=== PATIENT | female | born 1930 ===

== ENCOUNTER 2017-08-18 02:07 | Inpatient (IN) | payer MEDICARE ==
[~2017-08-18] VITALS: Ht 165.1 cm; Wt 82.7 kg
[2017-08-18] MEDS ORDERED: DOCU-109 PO (02:53)
[2017-08-18] MEDS ORDERED: MULT-658 PO (02:53)
[2017-08-18] MEDS ORDERED: DULO60CA6 PO (02:53)
[2017-08-18] MEDS ORDERED: CALC1CAP7 PO (02:53)
[2017-08-18] MEDS ORDERED: INSU100I17 SQ (02:53)
[2017-08-18] MEDS ORDERED: HYDR30CR6 RC (02:53)
[2017-08-18] MEDS ORDERED: LEVO125T5 PO (02:53)
[2017-08-18] MEDS ORDERED: POLY119P4 PO (02:53)
[2017-08-18] MEDS ORDERED: ASPI81TA50 PO (02:53)
[2017-08-18] MEDS ORDERED: INSU100I32 SQ (02:53)
[2017-08-18] MEDS ORDERED: CHOL10003 PO (02:53)
[2017-08-18] MEDS ORDERED: AMLO10TA4 PO (02:53)
[2017-08-18] MEDS ORDERED: DONE10TA61 PO (02:53)
[2017-08-18] MEDS ORDERED: MEMA10TA PO (02:53)
[2017-08-18] MEDS ORDERED: METO25TA4 PO (02:53)
[2017-08-18] MEDS ORDERED: CLOP75TA57 PO (02:53)
[2017-08-18] MEDS ORDERED: MAGNESIUM HYDROXIDE 2,400 MG/30 ML ORAL.SUSP. PO PRN (03:45)
[2017-08-18] MEDS ORDERED: MAG HYDROX/AL HYDROX/SIMETH 30 ML ORAL.SUSP PO PRN (03:45)
[2017-08-18] MEDS ORDERED: DEXTROSE 50% 25 GM / 50ML DISP.SYRIN. IV PRN (03:45)
[2017-08-18] MEDS ORDERED: HYDROCORTISONE 2.5% RECTAL CREAM 30GM TUBE. RC PRN (04:30)
[2017-08-18 04:47] VITALS: BP 156/54
[2017-08-18 04:51] LABS: BILIRUBIN,URINE NEG (NEG); CLARITY,URINE HAZY; COLOR,URINE YELLOW; GLUCOSE,URINE NEG (NEG); UROBILINOGEN,URINE 0.2 mg/dL (0.2 mg/dL)
[2017-08-18 04:52] LABS: BACTERIA,URINE FEW /HPF (0-FEW); NITRITE,URINE NEG (NEG); SQUAMOUS EPITHELIAL CELL,UR FEW /LPF
[2017-08-18] MEDS: LEVOTHYROXINE 125 MCG TABLET PO SCH (06:24)
[2017-08-18 06:52] VITALS: BP 154/68
[2017-08-18] MEDS: INSULIN ASPART 300 UNITS/3 ML INSULN.PEN SQ SCH ×3 (07:30→17:52)
[2017-08-18 08:19] LABS: BASO # 0.1 x10^3/uL (0.0-0.2); BASO % 1 % (0-3); EOS # 0.2 x10^3/uL (0.0-0.7); EOS % 3 % (0-3); HEMATOCRIT 39.1 % (36.0-47.0); HEMOGLOBIN 13.2 g/dL (12.0-15.5); LYMPH # 1.7 x10^3/uL (1.0-4.8); LYMPH % 27 % (24-48); MEAN CORPUSCULAR HEMOGLOBIN 31 pg (25-35); MEAN CORPUSCULAR HGB CONC 34 g/dL (31-37); MEAN CORPUSCULAR VOLUME 91 fL (79-100); MONO # 0.6 x10^3/uL (0.0-1.1); MONO % 10 % (0-9); NEUT # 3.8 x10^3uL (1.8-7.7); NEUT % 59 % (31-73); PLATELET COUNT 171 x10^3/uL (140-400); RED BLOOD COUNT 4.32 x10^6/uL (3.50-5.40); RED CELL DISTRIBUTION WIDTH 14.3 % (11.5-14.5); WHITE BLOOD COUNT 6.5 x10^3/uL (4.0-11.0)
[2017-08-18] MEDS: CLOPIDOGREL BISULFATE 75 MG TABLET PO SCH (08:38)
[2017-08-18] MEDS: DOCUSATE SODIUM 100 MG CAPSULE PO SCH (08:38)
[2017-08-18] MEDS: amLODIPine BESYLATE 10 MG TABLET PO SCH (08:39)
[2017-08-18] MEDS: DULoxetine HCL 60 MG CAPSULE.DR PO SCH (08:39)
[2017-08-18] MEDS: METOPROLOL TART IMMED RELEASE 25 MG TABLET PO SCH ×2 (08:39→20:45)
[2017-08-18] MEDS: MULTIVITAMIN with MINERAL TABLET. PO SCH (08:39)
[2017-08-18] MEDS: CALCIUM CARB/VIT D3 500/200 TABLET PO SCH ×2 (08:39→17:50)
[2017-08-18] MEDS: POLYETHYLENE GLYCOL 3350 17 GM PACKET. PO SCH (08:39)
[2017-08-18] MEDS: DONEPEZIL HCL 10 MG TABLET PO SCH ×2 (08:39→20:45)
[2017-08-18] MEDS: CHOLECALCIFEROL (VITAMIN D3) 1,000 UNIT TABLET PO SCH (08:39)
[2017-08-18] MEDS: MEMANTINE 10 MG TABLET. PO SCH ×2 (08:40→20:45)
[2017-08-18] MEDS: ASPIRIN ENTERIC COATED 81 MG TABLET.DR. PO SCH (08:40)
[2017-08-18 08:48] LABS: ALBUMIN 3.3 g/dL (3.4-5.0); ALBUMIN/GLOBULIN RATIO 0.8 (1.0-1.7); CALCIUM 9.6 mg/dL (8.5-10.1); CREATININE 1.2 mg/dL (0.6-1.0); GFR 42.5; TOTAL BILIRUBIN 0.4 mg/dL (0.2-1.0); TOTAL PROTEIN 7.2 g/dL (6.4-8.2)
[2017-08-18 10:31] LABS: THYROID STIM HORMONE (TSH) 0.88 uIU/mL (0.358-3.740)
[2017-08-18 15:07] LABS: T3 TOTAL 70 ng/dL (71-180); THYROXINE 7.3 ug/dL (4.5-12.0)
[2017-08-18 16:11] LABS: HEMOGLOBIN A1C 7.9 % (4.8-5.6)
[2017-08-18 18:11] VITALS: BP 148/59
[2017-08-18] MEDS: INSULIN DETEMIR 300 UNITS/3 ML INSULN.PEN. SQ SCH (20:58)
--- NOTE | 2017-08-18 22:35 | PDOC ---
Exam Note: Basil Note: Please also refer to the separate dictated note~for this date of service dictated separately.~Patient seen individually. Discussed the patient with Nursing staff reviewed the chart.~Reviewed interim history and current functioning. Reviewed vital signs,~Labs/ Radiology~and current medications noted below. Continue current treatment with the changes noted in the dictated addendum note Assessment: Vital Signs: Vital Signs Date Time Temp Pulse Resp B/P (MAP) Pulse Ox O2 Delivery O2 Flow Rate FiO2 08/18/17 20:45 71 148/59 08/18/17 18:11 98.1 18 98 Labs: Laboratory Tests Test 08/18/17 04:30 08/18/17 08:00 Urine Collection Type Unknown Urine Color Yellow Urine Clarity Hazy Urine pH 6.0 Urine Specific [place] 1.025 Urine Protein 30 mg/dl (NEG-TRACE) Urine Glucose (UA) Neg mg/dL (NEG) Urine Ketones (Stick) Neg mg/dL (NEG) Urine Blood Trace (NEG) Urine Nitrite Neg (NEG) Urine Bilirubin Neg (NEG) Urine Urobilinogen Dipstick 0.2 mg/dL (0.2 mg/dL) Urine Leukocyte Esterase Trace (NEG) Urine RBC 3-5 /HPF (0-2) Urine WBC 11-20 /HPF (0-4) Urine Squamous Epithelial Cells Few /LPF Urine Bacteria Few /HPF (0-FEW) Urine Mucus Slight /LPF White Blood Count 6.5 x10^3/uL (4.0-11.0) Red Blood Count 4.32 x10^6/uL (3.50-5.40) Hemoglobin 13.2 g/dL (12.0-15.5) Hematocrit 39.1 % (36.0-47.0) Mean Corpuscular Volume 91 fL (79-100) Mean Corpuscular Hemoglobin 31 pg (25-35) Mean Corpuscular Hemoglobin Concent 34 g/dL (31-37) Red Cell Distribution Width 14.3 % (11.5-14.5) Platelet Count 171 x10^3/uL (140-400) Neutrophils (%) (Auto) 59 % (31-73) Lymphocytes (%) (Auto) 27 % (24-48) Monocytes (%) (Auto) 10 % (0-9) H Eosinophils (%) (Auto) 3 % (0-3) Basophils (%) (Auto) 1 % (0-3) Neutrophils # (Auto) 3.8 x10^3uL (1.8-7.7) Lymphocytes # (Auto) 1.7 x10^3/uL (1.0-4.8) Monocytes # (Auto) 0.6 x10^3/uL (0.0-1.1) Eosinophils # (Auto) 0.2 x10^3/uL (0.0-0.7) Basophils # (Auto) 0.1 x10^3/uL (0.0-0.2) Sodium Level 141 mmol/L (136-145) Potassium Level 4.0 mmol/L (3.5-5.1) Chloride Level 104 mmol/L (98-107) Carbon Dioxide Level 29 mmol/L (21-32) Anion Gap 8 (6-14) Blood Urea Nitrogen 25 mg/dL (7-20) H Creatinine 1.2 mg/dL (0.6-1.0) H Estimated GFR (Cockcroft-Gault) 42.5 BUN/Creatinine Ratio 21 (6-20) H Glucose Level 180 mg/dL (70-99) H Hemoglobin A1c 7.9 % (4.8-5.6) H Calcium Level 9.6 mg/dL (8.5-10.1) Magnesium Level 2.0 mg/dL (1.8-2.4) Iron Level 89 ug/dL (50-170) Total Iron Binding Capacity 276 ug/dL (250-450) Iron Saturation 32 % (15-34) Total Bilirubin 0.4 mg/dL (0.2-1.0) Aspartate Amino Transferase (AST) 18 U/L (15-37) Alanine Aminotransferase (ALT) 23 U/L (14-59) Alkaline Phosphatase 87 U/L (46-116) Total Protein 7.2 g/dL (6.4-8.2) Albumin 3.3 g/dL (3.4-5.0) L Albumin/Globulin Ratio 0.8 (1.0-1.7) L Triglycerides Level 311 mg/dL (0-150) H Cholesterol Level 300 mg/dL (0-200) H LDL Cholesterol, Calculated 193 mg/dL (0-100) H VLDL Cholesterol, Calculated 62 mg/dL (0-40) H Non-HDL Cholesterol Calculated 255 mg/dL (0-129) H HDL Cholesterol 45 mg/dL (40-60) Cholesterol/HDL Ratio 6.0 Thyroid Stimulating Hormone (TSH) 0.880 uIU/mL (0.358-3.740) Thyroxine (T4) 7.3 ug/dL (4.5-12.0) Total Triiodothyronine (TT3) 70 ng/dL (71-180) L Rapid Plasma Reagin Pending Current Medications: Meds: Current Medications Al Hydroxide/Mg Hydroxide (Mylanta Plus Xs) 15 ml PRN AFTMEALHC PRN PO DYSPEPSIA; Start 08/18/17 at 03:45 Magnesium Hydroxide (Milk Of Magnesia) 2,400 mg PRN QHS PRN PO CONSTIPATION; Start 08/18/17 at 03:45 Donepezil HCl (Aricept) 10 mg BID PO Last administered on 08/18/17at 20:45; Start 08/18/17 at 09:00 Duloxetine HCl (Cymbalta) 60 mg DAILY PO Last administered on 08/18/17at 08:39; Start 08/18/17 at 09:00 Memantine (Namenda) 10 mg BID PO Last administered on 08/18/17at 20:45; Start at 09:00 Amlodipine Besylate (Norvasc) 10 mg DAILY PO Last administered on 08/18/17at 08: 39; Start 08/18/17 at 09:00 Aspirin (Aspirin Enteric Coated) 81 mg DAILY PO Last administered on 08/18/17at 08:40; Start 08/18/17 at 09:00 Vitamin D (Vitamin D3) 2,000 unit DAILY PO Last administered on 08/18/17at 08:39 ; Start 08/18/17 at 09:00 Clopidogrel Bisulfate (Plavix) 75 mg DAILY PO Last administered on 08/18/17at 08 :38; Start 08/18/17 at 09:00 Docusate Sodium (Colace) 100 mg DAILY PO Last administered on 08/18/17at 08:38; Start 08/18/17 at 09:00 Levothyroxine Sodium (Synthroid) 125 mcg DAILY06 PO Last administered on at 06:24; Start 08/18/17 at 06:00 Metoprolol Tartrate (Lopressor) 25 mg BID PO Last administered on 08/18/17at 20: 45; Start 08/18/17 at 09:00 Polyethylene Glycol (miraLAX) 17 gm DAILY PO Last administered on 08/18/17at 08: 39; Start 08/18/17 at 09:00 Calcium/Vitamin D (Oscal D 500mg/ 200uts) 1 tab BIDWMEALS PO Last administered on 08/18/17at 17:50; Start 08/18/17 at 08:00 Hydrocortisone (Proctosol-Hc) 1 yessica PRN BID PRN RC HEMORRHOID PAIN; Start 08/18 at 04:30 Multivitamins/ Calcium (Thera-M Plus) 1 tab DAILY PO Last administered on at 08:39; Start 08/18/17 at 09:00 Insulin Aspart (NovoLOG) 0-5 UNITS TIDAC SQ Last administered on 08/18/17at 17: 52; Start 08/18/17 at 07:30 Dextrose 12.5 gm PRN Q15MIN PRN IV SEE COMMENTS; Start 08/18/17 at 03:45 Insulin Detemir (Levemir) 64 units QHS SQ Last administered on 08/18/17at 20:58 ; Start 08/18/17 at 21:00 Active Scripts Active Reported Novolog Flexpen (Insulin Aspart) 100 Unit/1 Ml Insuln.pen 0-10 Unit SQ TIDAC Sliding Scale: Accucheck: 150-200 = 2 units 201-250 = 4 units 251-300 = 6 units 301-400 = 8 units 401-500 = 10 units Call PCP if > than 500 or < 70 Basaglar Kwikpen U-100 (Insulin Glargine,Hum.rec.anlog) 100 Unit/1 Ml Insuln.pen 64 Unit SQ QHS Analpram Hc 2.5% Cream (Hydrocortisone/Pramoxine) 30 Gm Cream.appl 1 Yessica RC PRN BID PRN Vitamin D3 (Cholecalciferol (Vitamin D3)) 1,000 Unit Tablet 2,000 Unit PO DAILY Miralax (Polyethylene Glycol 3350) 119 Gm Powder 17 Gm PO DAILY Metoprolol Tartrate 25 Mg Tablet 25 Mg PO BID Namenda (Memantine Hcl) 10 Mg Tablet 10 Mg PO BID Levothyroxine Sodium 125 Mcg Tablet 125 Mcg PO DAILY06 Cymbalta (Duloxetine Hcl) 60 Mg Capsule. 60 Mg PO DAILY Aricept (Donepezil Hcl) 10 Mg Tablet 10 Mg PO BID Colace (Docusate Sodium) 100 Mg Capsule 100 Mg PO DAILY Plavix (Clopidogrel Bisulfate) 75 Mg Tablet 75 Mg PO DAILY Centrum Silver Tablet (Multivits-Min/Fa/Lycopene/Lut) 1 Each Tablet 1 Tab PO DAILY Calcium 600 + Vit D 400 Softgl (Calcium Carbonate/Vitamin D3) 1 Each Capsule 1 Cap PO BIDWMEALS Aspir-Low (Aspirin) 81 Mg Tablet. 81 Mg PO DAILY Norvasc (Amlodipine Besylate) 10 Mg Tablet 10 Mg PO DAILY I have reviewed the current psychotropics carefully including drug interactions. Risk benefit ratio favors no change other than as noted in my dictated progress note. HITESH MARIE MD Aug 18, 2017 22:35
[2017-08-19] MEDS: LEVOTHYROXINE 125 MCG TABLET PO SCH (06:08)
[2017-08-19 06:45] VITALS: BP 147/69
[2017-08-19] MEDS: INSULIN ASPART 300 UNITS/3 ML INSULN.PEN SQ SCH ×3 (07:30→16:30)
[2017-08-19] MEDS: amLODIPine BESYLATE 10 MG TABLET PO SCH (08:05)
[2017-08-19] MEDS: CALCIUM CARB/VIT D3 500/200 TABLET PO SCH ×2 (08:05→17:00)
[2017-08-19] MEDS: DOCUSATE SODIUM 100 MG CAPSULE PO SCH (08:05)
[2017-08-19] MEDS: CLOPIDOGREL BISULFATE 75 MG TABLET PO SCH (08:05)
[2017-08-19] MEDS: METOPROLOL TART IMMED RELEASE 25 MG TABLET PO SCH ×2 (08:06→19:24)
[2017-08-19] MEDS: DULoxetine HCL 60 MG CAPSULE.DR PO SCH (08:06)
[2017-08-19] MEDS: POLYETHYLENE GLYCOL 3350 17 GM PACKET. PO SCH (08:06)
[2017-08-19] MEDS: ASPIRIN ENTERIC COATED 81 MG TABLET.DR. PO SCH (08:06)
[2017-08-19] MEDS: MULTIVITAMIN with MINERAL TABLET. PO SCH (08:06)
[2017-08-19] MEDS: MEMANTINE 10 MG TABLET. PO SCH ×2 (08:06→19:25)
[2017-08-19] MEDS: CHOLECALCIFEROL (VITAMIN D3) 1,000 UNIT TABLET PO SCH (08:06)
[2017-08-19] MEDS: DONEPEZIL HCL 10 MG TABLET PO SCH ×2 (08:06→19:24)
--- NOTE | 2017-08-19 09:51 | HP ---
ADMIT DATE: 08/18/2017 This is a late entry 08/18/2017, covers the elements not covered in my initial note, 08/18/2017. IDENTIFYING DATA: The patient was seen individually the evening of 08/18/2017, discussed with the nursing staff, reviewed the chart and previously had discussed with nursing staff several times to gather background referral information from the [facility] and [facility] where she presented from the skilled nursing on account of increased agitation, hallucinations of children, but she was chasing in the hallway, aggressive towards staff and chasing staff, delusional, making attempts at elopement within the context of her dementia with delusion, behavioral disturbance. CHIEF COMPLAINT: "I have been here 3 months." HISTORY OF PRESENT ILLNESS: The patient has history of dementia, Alzheimer's vascular type. She has been residing at the [facility], but more recently has been getting increasingly agitated, psychotic with marked mood lability, sleep and appetite changes. No active suicidal or homicidal ideation. She does have a history of worsening mood swings in addition to her marked dementia. PAST PSYCHIATRIC HISTORY: As above. MEDICAL HISTORY: Hypertension, diabetes mellitus, coronary artery disease, hypothyroidism, chronic kidney disease, ischemic stroke, statin intolerance, edema. MEDICATIONS: Accu-Cheks before meals and at bedtime. DIET: Regular, takes her medications whole. Ambulates with walker. UA is pending. ALLERGIES: WELLBUTRIN, SEROQUEL, ATIVAN, NIACIN, MOTRIN, PAMELOR, QUESTRAN, DARVOCET, STATINS, NEURONTIN, EVISTA, TALWIN. CURRENT PSYCHOTROPICS: Namenda 10 mg b.i.d., Aricept 10 mg b.i.d., Cymbalta 60 mg a day. FAMILY HISTORY: Noncontributory. SOCIAL HISTORY: No history of alcohol, drug abuse, physical, sexual or elder abuse history is noted. She is not known to be a perpetrator. MENTAL STATUS EXAMINATION: The patient was seen individually evening of 08/18/2017. She is oriented to herself, thought she has been here several months, quite disorganized. Insight, judgment, recent and remote memory, attention, concentration, fund of knowledge poor, consistent with her diagnosis. She is quite dysphoric, somewhat delusional. No active suicidal or homicidal ideation. ASSETS: Stable living at the facility, supportive family. Reaction to hospitalization, the patient oblivious of this. IMPRESSION: Major neurocognitive disorder, Alzheimer, vascular with depression, delusion, behavioral disturbance; anxiety disorder, unspecified; impulse control disorder, unspecified. Rest as above. PLAN: Admit to Geropsychiatry Unit at [facility]. I will see the patient daily individually from a psychiatric standpoint medical followup per Dr. Carlson/Dr. Cai. Continue the patient on her current psychotropics, observe baseline, then adjust further as clinically indicated. MAN Koko MARIE MD DR: FENG/jamaica JOB#: [id number] / [id number]
--- NOTE | 2017-08-19 12:36 | CONS ---
DATE OF CONSULTATION: 08/18/2017 REASON FOR CONSULTATION: Medical management. HISTORY OF PRESENT ILLNESS: The patient is an 87-year-old female patient, resident of [facility], who apparently has increased agitation, hallucination. She is seeing children in the [place] aggressive towards staff, chasing staff, delusions, elopement and all this in a background of dementia with behavioral disturbances and delusion and she was admitted to Behavioral Unit for inpatient psychiatric stabilization. The patient herself denied any complaint and she was apparently very calm, cooperative and compliant. PAST MEDICAL HISTORY: Significant for hypertension, insulin-dependent diabetes mellitus, coronary artery disease, hypothyroidism, chronic kidney disease, ischemic stroke. PAST PSYCHIATRIC HISTORY: Significant for depression, dementia with behavioral disorder and delusion. ALLERGIES: She is allergic to WELLBUTRIN, CHOLESTYRAMINE, ACETAMINOPHEN, GABAPENTIN, GEMFIBROZIL, HYDROCHLOROTHIAZIDE, IBUPROFEN, LISINOPRIL, ____ and NORTRIPTYLINE. MEDICATIONS: She is currently on the following medications: Amlodipine 10 mg once a day, aspirin 81 mg once a day, calcium with vitamin D one tablet 3 times a day with meals, vitamin D3 2000 international units p.o. daily, Plavix 75 mg once a day, Colace 100 mg twice a day, Aricept 10 mg twice a day, duloxetine 60 mg daily, hydrocortisone/pramoxine cream apply topically twice a day for hemorrhoids. She is on NovoLog FlexPen 3 times a day before meals advancing insulin sliding scale. She is on Lantus insulin 64 units at bedtime, levothyroxine sodium 125 mcg daily, Namenda 10 mg p.o. b.i.d., metoprolol tartrate 25 mg twice a day, multivitamin 1 tablet once a day, butylene glycol 17 grams daily constipation. PAST SURGICAL HISTORY: Significant for appendectomy, hip replacement and hysterectomy. FAMILY HISTORY: Apparently, her brother has Alzheimer disease and cancer and mother has emphysema and her father has an ulcer. SOCIAL HISTORY: She has never smoked, does not drink alcohol or use any recreational drugs. PHYSICAL EXAMINATION: GENERAL: On examining her, she was sitting comfortably in her chair, eating her dinner comfortably in no apparent distress. There was no pallor, jaundice, cyanosis or thyromegaly. VITAL SIGNS: Her heart rate was 62, blood pressure 154/68, temperature was 97.6, respiratory rate 20, and oxygen saturation was 93%. HEAD, EYES, EARS, NOSE AND THROAT: Showed normocephalic, atraumatic. NECK: Supple. HEART: Showed normal first and second heart sounds. No gallop, rub or murmur. CHEST: Clear to auscultation. No crepitation or rhonchi. ABDOMEN: Distended, soft, nontender. NEUROLOGIC: She is awake, alert, oriented to herself All her cranial nerves are intact. EXTREMITIES: She moves extremities without difficulty. She ambulates with a walker. LABORATORY DATA: Showed a white cell count 6500, hemoglobin 13, hematocrit 39, MCV 91, and platelet count 271,000. Her chemistry showed a serum sodium 141, potassium 4, chloride 104, bicarbonate 29, anion gap of 8, BUN 25, creatinine 1.2, estimated GFR was 42 mL per minute. Her glucose was 180. Hemoglobin A1c was 7.9. Calcium was 9.6, magnesium 2. Serum iron 89, TIBC was 276, percent saturation was 82. Her serum total bilirubin, AST, ALT, alkaline phosphatase were normal. Total protein was 7.2, albumin 3.3. Her serum triglycerides were 311, total cholesterol was 300, LDL was 993, VLDL was 62, and HDL cholesterol was 45, the ratio was 6. Her TSH was 0.88, total T4 was 7.3 and total T3 was 70. Her urinalysis showed the urine was yellow, hazy with a pH of 6, specific gravity 1.025 with trace of protein, negative for glucose, negative for ketones, trace of blood, negative for nitrite, trace of leukocyte esterase, 3-5 rbc's, 11-20 wbc's, very few bacteria. Her RPR is still pending at the time of this dictation. IMPRESSION: In summary, this is an 87-year-old female patient who was admitted to this facility on the account of increased agitation, hallucination. Apparently, she is seeing children in the [place] that are not there. She was aggressive towards staff. She is seemed staff, delusional and attempting elopement. All this in a background of dementia with behavioral disorder and delusion. She has multiple medical problems including hypertension, type 2 diabetes, coronary artery disease, hypothyroidism, chronic kidney disease, ischemic stroke. She apparently is allergic to the statins. On lab studies, obviously her serum triglycerides and total cholesterol and LDL cholesterol are extremely high. Her blood sugar also is suboptimally controlled with a hemoglobin A1c of 7.9. She has chronic kidney disease. PLAN: My plan is to obviously continue with all her medication as they are now. We will follow her blood sugar and might have to adjust her insulin as needed. Thank you, Dr. Malone for allowing me to participate in the care of this patient. SULY SIMON MD DR: BARBARA/j[place]ica JOB#: [id number] / [id number]
[2017-08-19 16:02] VITALS: BP_SYST 115; BP_SYST 172; BP_DIAS 71; BP_DIAS 72
[2017-08-19] MEDS: INSULIN DETEMIR 300 UNITS/3 ML INSULN.PEN. SQ SCH (19:27)
--- NOTE | 2017-08-19 20:07 | PDOC ---
Exam Note: Basil Note: Please also refer to the separate dictated note~for this date of service dictated separately.~Patient seen individually. Discussed the patient with Nursing staff reviewed the chart.~Reviewed interim history and current functioning. Reviewed vital signs,~Labs/ Radiology~and current medications noted below. Continue current treatment with the changes noted in the dictated addendum note Assessment: Vital Signs: Vital Signs Date Time Temp Pulse Resp B/P (MAP) Pulse Ox O2 Delivery O2 Flow Rate FiO2 08/19/17 19:24 68 172/72 08/19/17 16:02 98.0 20 98 I&O Intake and Output 08/19/17 07:00 Intake Total 840 ml Balance 840 ml Intake Oral 840 ml Current Medications: Meds: Current Medications Al Hydroxide/Mg Hydroxide (Mylanta Plus Xs) 15 ml PRN AFTMEALHC PRN PO DYSPEPSIA; Start 08/18/17 at 03:45 Magnesium Hydroxide (Milk Of Magnesia) 2,400 mg PRN QHS PRN PO CONSTIPATION; Start 08/18/17 at 03:45 Donepezil HCl (Aricept) 10 mg BID PO Last administered on 08/19/17at 19:24; Start 08/18/17 at 09:00 Duloxetine HCl (Cymbalta) 60 mg DAILY PO Last administered on 08/19/17at 08:06; Start 08/18/17 at 09:00 Memantine (Namenda) 10 mg BID PO Last administered on 08/19/17at 19:25; Start at 09:00 Amlodipine Besylate (Norvasc) 10 mg DAILY PO Last administered on 08/19/17at 08: 05; Start 08/18/17 at 09:00 Aspirin (Aspirin Enteric Coated) 81 mg DAILY PO Last administered on 08/19/17at 08:06; Start 08/18/17 at 09:00 Vitamin D (Vitamin D3) 2,000 unit DAILY PO Last administered on 08/19/17at 08:06 ; Start 08/18/17 at 09:00 Clopidogrel Bisulfate (Plavix) 75 mg DAILY PO Last administered on 08/19/17at 08 :05; Start 08/18/17 at 09:00 Docusate Sodium (Colace) 100 mg DAILY PO Last administered on 08/19/17at 08:05; Start 08/18/17 at 09:00 Levothyroxine Sodium (Synthroid) 125 mcg DAILY06 PO Last administered on at 06:08; Start 08/18/17 at 06:00 Metoprolol Tartrate (Lopressor) 25 mg BID PO Last administered on 08/19/17at 19: 24; Start 08/18/17 at 09:00 Polyethylene Glycol (miraLAX) 17 gm DAILY PO Last administered on 08/19/17at 08: 06; Start 08/18/17 at 09:00 Calcium/Vitamin D (Oscal D 500mg/ 200uts) 1 tab BIDWMEALS PO Last administered on 08/19/17at 17:00; Start 08/18/17 at 08:00 Hydrocortisone (Proctosol-Hc) 1 yessica PRN BID PRN RC HEMORRHOID PAIN; Start 08/18 at 04:30 Multivitamins/ Calcium (Thera-M Plus) 1 tab DAILY PO Last administered on at 08:06; Start 08/18/17 at 09:00 Insulin Aspart (NovoLOG) 0-5 UNITS TIDAC SQ Last administered on 08/19/17at 16: 30; Start 08/18/17 at 07:30 Dextrose 12.5 gm PRN Q15MIN PRN IV SEE COMMENTS; Start 08/18/17 at 03:45 Insulin Detemir (Levemir) 64 units QHS SQ Last administered on 08/19/17at 19:27 ; Start 08/18/17 at 21:00 Active Scripts Active Reported Novolog Flexpen (Insulin Aspart) 100 Unit/1 Ml Insuln.pen 0-10 Unit SQ TIDAC Sliding Scale: Accucheck: 150-200 = 2 units 201-250 = 4 units 251-300 = 6 units 301-400 = 8 units 401-500 = 10 units Call PCP if > than 500 or < 70 Basaglar Kwikpen U-100 (Insulin Glargine,Hum.rec.anlog) 100 Unit/1 Ml Insuln.pen 64 Unit SQ QHS Analpram Hc 2.5% Cream (Hydrocortisone/Pramoxine) 30 Gm Cream.appl 1 Yessica RC PRN BID PRN Vitamin D3 (Cholecalciferol (Vitamin D3)) 1,000 Unit Tablet 2,000 Unit PO DAILY Miralax (Polyethylene Glycol 3350) 119 Gm Powder 17 Gm PO DAILY Metoprolol Tartrate 25 Mg Tablet 25 Mg PO BID Namenda (Memantine Hcl) 10 Mg Tablet 10 Mg PO BID Levothyroxine Sodium 125 Mcg Tablet 125 Mcg PO DAILY06 Cymbalta (Duloxetine Hcl) 60 Mg Capsule. 60 Mg PO DAILY Aricept (Donepezil Hcl) 10 Mg Tablet 10 Mg PO BID Colace (Docusate Sodium) 100 Mg Capsule 100 Mg PO DAILY Plavix (Clopidogrel Bisulfate) 75 Mg Tablet 75 Mg PO DAILY Centrum Silver Tablet (Multivits-Min/Fa/Lycopene/Lut) 1 Each Tablet 1 Tab PO DAILY Calcium 600 + Vit D 400 Softgl (Calcium Carbonate/Vitamin D3) 1 Each Capsule 1 Cap PO BIDWMEALS Aspir-Low (Aspirin) 81 Mg Tablet. 81 Mg PO DAILY Norvasc (Amlodipine Besylate) 10 Mg Tablet 10 Mg PO DAILY I have reviewed the current psychotropics carefully including drug interactions. Risk benefit ratio favors no change other than as noted in my dictated progress note. Diagnosis: Problems: (1) Congenital nevus of labia majora (2) Anxiety disorder (3) Behavior problem (4) Vascular dementia with behavior disturbance (5) Impulse control disorder (6) Depression HITESH MARIE MD Aug 19, 2017 20:07
[2017-08-20] MEDS: LEVOTHYROXINE 125 MCG TABLET PO SCH (05:45)
[2017-08-20 06:14] VITALS: BP 145/60
[2017-08-20] MEDS: INSULIN ASPART 300 UNITS/3 ML INSULN.PEN SQ SCH ×3 (07:30→16:30)
[2017-08-20] MEDS: amLODIPine BESYLATE 10 MG TABLET PO SCH (08:37)
[2017-08-20] MEDS: MULTIVITAMIN with MINERAL TABLET. PO SCH (08:37)
[2017-08-20] MEDS: POLYETHYLENE GLYCOL 3350 17 GM PACKET. PO SCH (08:37)
[2017-08-20] MEDS: CHOLECALCIFEROL (VITAMIN D3) 1,000 UNIT TABLET PO SCH (08:37)
[2017-08-20] MEDS: CALCIUM CARB/VIT D3 500/200 TABLET PO SCH ×2 (08:37→17:02)
[2017-08-20] MEDS: MEMANTINE 10 MG TABLET. PO SCH ×2 (08:38→19:22)
[2017-08-20] MEDS: DOCUSATE SODIUM 100 MG CAPSULE PO SCH (08:38)
[2017-08-20] MEDS: CLOPIDOGREL BISULFATE 75 MG TABLET PO SCH (08:38)
[2017-08-20] MEDS: METOPROLOL TART IMMED RELEASE 25 MG TABLET PO SCH ×2 (08:38→19:23)
[2017-08-20] MEDS: ASPIRIN ENTERIC COATED 81 MG TABLET.DR. PO SCH (08:38)
[2017-08-20] MEDS: DONEPEZIL HCL 10 MG TABLET PO SCH ×2 (08:38→19:22)
[2017-08-20] MEDS: DULoxetine HCL 60 MG CAPSULE.DR PO SCH (08:38)
[2017-08-20] MEDS ORDERED: FOSFOMYCIN TROMETHAMINE 3 GM PACKET PO ONE (14:00)
[2017-08-20 15:59] VITALS: BP 183/65
[2017-08-20] MEDS: INSULIN DETEMIR 300 UNITS/3 ML INSULN.PEN. SQ SCH (19:25)
--- NOTE | 2017-08-20 19:59 | PDOC ---
Exam Note: Basil Note: Please also refer to the separate dictated note~for this date of service dictated separately.~Patient seen individually. Discussed the patient with Nursing staff reviewed the chart.~Reviewed interim history and current functioning. Reviewed vital signs,~Labs/ Radiology~and current medications noted below. Continue current treatment with the changes noted in the dictated addendum note Assessment: Vital Signs: Vital Signs Date Time Temp Pulse Resp B/P (MAP) Pulse Ox O2 Delivery O2 Flow Rate FiO2 08/20/17 19:23 70 183/65 08/20/17 15:59 98.2 20 97 I&O Intake and Output 08/20/17 07:00 Intake Total 1200 ml Balance 1200 ml Intake Oral 1200 ml Labs: Laboratory Tests Test 08/20/17 07:27 08/20/17 11:54 08/20/17 16:48 08/20/17 19:19 Glucose (Fingerstick) 90 mg/dL (70-99) 176 mg/dL (70-99) H 182 mg/dL (70-99) H 246 mg/dL (70-99) H Current Medications: Meds: Current Medications Al Hydroxide/Mg Hydroxide (Mylanta Plus Xs) 15 ml PRN AFTMEALHC PRN PO DYSPEPSIA; Start 08/18/17 at 03:45 Magnesium Hydroxide (Milk Of Magnesia) 2,400 mg PRN QHS PRN PO CONSTIPATION; Start 08/18/17 at 03:45 Donepezil HCl (Aricept) 10 mg BID PO Last administered on 08/20/17at 19:22; Start 08/18/17 at 09:00 Duloxetine HCl (Cymbalta) 60 mg DAILY PO Last administered on 08/20/17at 08:38; Start 08/18/17 at 09:00 Memantine (Namenda) 10 mg BID PO Last administered on 08/20/17at 19:22; Start at 09:00 Amlodipine Besylate (Norvasc) 10 mg DAILY PO Last administered on 08/20/17at 08: 37; Start 08/18/17 at 09:00 Aspirin (Aspirin Enteric Coated) 81 mg DAILY PO Last administered on 08/20/17at 08:38; Start 08/18/17 at 09:00 Vitamin D (Vitamin D3) 2,000 unit DAILY PO Last administered on 08/20/17 08:37 ; Start 08/18/17 at 09:00 Clopidogrel Bisulfate (Plavix) 75 mg DAILY PO Last administered on 08/20/17 08 :38; Start 08/18/17 at 09:00 Docusate Sodium (Colace) 100 mg DAILY PO Last administered on 08/20/17 08:38; Start 08/18/17 at 09:00 Levothyroxine Sodium (Synthroid) 125 mcg DAILY06 PO Last administered on at 05:45; Start 08/18/17 at 06:00 Metoprolol Tartrate (Lopressor) 25 mg BID PO Last administered on 08/20/17 19: 23; Start 08/18/17 at 09:00 Polyethylene Glycol (miraLAX) 17 gm DAILY PO Last administered on 08/20/17 08: 37; Start 08/18/17 at 09:00 Calcium/Vitamin D (Oscal D 500mg/ 200uts) 1 tab BIDWMEALS PO Last administered on 08/20/17 17:02; Start 08/18/17 at 08:00 Hydrocortisone (Proctosol-Hc) 1 yessica PRN BID PRN RC HEMORRHOID PAIN; Start 08/18 at 04:30 Multivitamins/ Calcium (Thera-M Plus) 1 tab DAILY PO Last administered on 08:37; Start 08/18/17 at 09:00 Insulin Aspart (NovoLOG) 0-5 UNITS TIDAC SQ Last administered on 08/20/17 16: 30; Start 08/18/17 at 07:30 Dextrose 12.5 gm PRN Q15MIN PRN IV SEE COMMENTS; Start 08/18/17 at 03:45 Insulin Detemir (Levemir) 64 units QHS SQ Last administered on 08/20/17 19:25 ; Start 08/18/17 at 21:00 Fosfomycin Tromethamine (Monurol) 3 gm 1X ONCE PO Last administered on 14:32; Start 08/20/17 at 14:00; Stop 08/20/17 at 14:01; Status DC Buspirone HCl (Buspar) 5 mg BID92 PO ; Start 08/21/17 at 09:00 Active Scripts Active Reported Novolog Flexpen (Insulin Aspart) 100 Unit/1 Ml Insuln.pen 0-10 Unit SQ TIDAC Sliding Scale: Accucheck: 150-200 = 2 units 201-250 = 4 units 251-300 = 6 units 301-400 = 8 units 401-500 = 10 units Call PCP if > than 500 or < 70 Basaglerasto Wiliamikpen U-100 (Insulin Glargine,Hum.rec.anlog) 100 Unit/1 Ml Insuln.pen 64 Unit SQ QHS Analpram Hc 2.5% Cream (Hydrocortisone/Pramoxine) 30 Gm Cream.appl 1 Yessica RC PRN BID PRN Vitamin D3 (Cholecalciferol (Vitamin D3)) 1,000 Unit Tablet 2,000 Unit PO DAILY Miralax (Polyethylene Glycol 3350) 119 Gm Powder 17 Gm PO DAILY Metoprolol Tartrate 25 Mg Tablet 25 Mg PO BID Namenda (Memantine Hcl) 10 Mg Tablet 10 Mg PO BID Levothyroxine Sodium 125 Mcg Tablet 125 Mcg PO DAILY06 Cymbalta (Duloxetine Hcl) 60 Mg Capsule. 60 Mg PO DAILY Aricept (Donepezil Hcl) 10 Mg Tablet 10 Mg PO BID Colace (Docusate Sodium) 100 Mg Capsule 100 Mg PO DAILY Plavix (Clopidogrel Bisulfate) 75 Mg Tablet 75 Mg PO DAILY Centrum Silver Tablet (Multivits-Min/Fa/Lycopene/Lut) 1 Each Tablet 1 Tab PO DAILY Calcium 600 + Vit D 400 Softgl (Calcium Carbonate/Vitamin D3) 1 Each Capsule 1 Cap PO BIDWMEALS Aspir-Low (Aspirin) 81 Mg Tablet. 81 Mg PO DAILY Norvasc (Amlodipine Besylate) 10 Mg Tablet 10 Mg PO DAILY I have reviewed the current psychotropics carefully including drug interactions. Risk benefit ratio favors no change other than as noted in my dictated progress note. Diagnosis: Problems: (1) Anxiety disorder (2) Depression (3) Impulse control disorder (4) Congenital nevus of labia majora (5) Vascular dementia with behavior disturbance (6) Behavior problem HITESH MARIE MD Aug 20, 2017 19:59
[2017-08-21 06:10] VITALS: BP 185/69
[2017-08-21] MEDS: LEVOTHYROXINE 125 MCG TABLET PO SCH (06:12)
[2017-08-21] MEDS: INSULIN ASPART 300 UNITS/3 ML INSULN.PEN SQ SCH ×3 (07:30→17:48)
[2017-08-21] MEDS: POLYETHYLENE GLYCOL 3350 17 GM PACKET. PO SCH (09:18)
[2017-08-21] MEDS: ASPIRIN ENTERIC COATED 81 MG TABLET.DR. PO SCH (09:18)
[2017-08-21] MEDS: DONEPEZIL HCL 10 MG TABLET PO SCH ×2 (09:19→19:49)
[2017-08-21] MEDS: CALCIUM CARB/VIT D3 500/200 TABLET PO SCH ×2 (09:19→17:47)
[2017-08-21] MEDS: CLOPIDOGREL BISULFATE 75 MG TABLET PO SCH (09:19)
[2017-08-21] MEDS: CHOLECALCIFEROL (VITAMIN D3) 1,000 UNIT TABLET PO SCH (09:19)
[2017-08-21] MEDS: MEMANTINE 10 MG TABLET. PO SCH ×2 (09:19→19:50)
[2017-08-21] MEDS: MULTIVITAMIN with MINERAL TABLET. PO SCH (09:19)
[2017-08-21] MEDS: METOPROLOL TART IMMED RELEASE 25 MG TABLET PO SCH ×2 (09:19→19:49)
[2017-08-21] MEDS: amLODIPine BESYLATE 10 MG TABLET PO SCH (09:19)
[2017-08-21] MEDS: DOCUSATE SODIUM 100 MG CAPSULE PO SCH (09:19)
[2017-08-21] MEDS: DULoxetine HCL 60 MG CAPSULE.DR PO SCH (09:19)
[2017-08-21] MEDS: busPIRone 5 MG TABLET. PO SCH ×2 (09:20→15:05)
[2017-08-21 16:33] VITALS: BP 126/63
[2017-08-21] MEDS: INSULIN DETEMIR 300 UNITS/3 ML INSULN.PEN. SQ SCH (19:51)
--- NOTE | 2017-08-21 20:00 | PDOC ---
Exam Note: Basil Note: Please also refer to the separate dictated note~for this date of service dictated separately.~Patient seen individually. Discussed the patient with Nursing staff reviewed the chart.~Reviewed interim history and current functioning. Reviewed vital signs,~Labs/ Radiology~and current medications noted below. Continue current treatment with the changes noted in the dictated addendum note Assessment: Vital Signs: Vital Signs Date Time Temp Pulse Resp B/P (MAP) Pulse Ox O2 Delivery O2 Flow Rate FiO2 08/21/17 19:49 73 126/63 08/21/17 16:33 98.1 16 94 I&O Intake and Output 08/21/17 07:00 Intake Total 960 ml Balance 960 ml Intake Oral 960 ml # Bowel Movements 1 Labs: Laboratory Tests Test 08/21/17 07:42 08/21/17 11:52 08/21/17 16:57 08/21/17 19:29 Glucose (Fingerstick) 108 mg/dL (70-99) H 174 mg/dL (70-99) H 171 mg/dL (70-99) H 264 mg/dL (70-99) H Current Medications: Meds: Current Medications Al Hydroxide/Mg Hydroxide (Mylanta Plus Xs) 15 ml PRN AFTMEALHC PRN PO DYSPEPSIA; Start 08/18/17 at 03:45 Magnesium Hydroxide (Milk Of Magnesia) 2,400 mg PRN QHS PRN PO CONSTIPATION; Start 08/18/17 at 03:45 Donepezil HCl (Aricept) 10 mg BID PO Last administered on 08/21/17at 19:49; Start 08/18/17 at 09:00 Duloxetine HCl (Cymbalta) 60 mg DAILY PO Last administered on 08/21/17at 09:19; Start 08/18/17 at 09:00 Memantine (Namenda) 10 mg BID PO Last administered on 08/21/17at 19:50; Start at 09:00 Amlodipine Besylate (Norvasc) 10 mg DAILY PO Last administered on 08/21/17at 09: 19; Start 08/18/17 at 09:00 Aspirin (Aspirin Enteric Coated) 81 mg DAILY PO Last administered on 08/21/17at 09:18; Start 08/18/17 at 09:00 Vitamin D (Vitamin D3) 2,000 unit DAILY PO Last administered on 08/21/17 09:19 ; Start 08/18/17 at 09:00 Clopidogrel Bisulfate (Plavix) 75 mg DAILY PO Last administered on 08/21/17 09 :19; Start 08/18/17 at 09:00 Docusate Sodium (Colace) 100 mg DAILY PO Last administered on 08/21/17 09:19; Start 08/18/17 at 09:00 Levothyroxine Sodium (Synthroid) 125 mcg DAILY06 PO Last administered on at 06:12; Start 08/18/17 at 06:00 Metoprolol Tartrate (Lopressor) 25 mg BID PO Last administered on 08/21/17 19: 49; Start 08/18/17 at 09:00 Polyethylene Glycol (miraLAX) 17 gm DAILY PO Last administered on 08/21/17 09: 18; Start 08/18/17 at 09:00 Calcium/Vitamin D (Oscal D 500mg/ 200uts) 1 tab BIDWMEALS PO Last administered on 08/21/17at 17:47; Start 08/18/17 at 08:00 Hydrocortisone (Proctosol-Hc) 1 yessica PRN BID PRN RC HEMORRHOID PAIN; Start 08/18 at 04:30 Multivitamins/ Calcium (Thera-M Plus) 1 tab DAILY PO Last administered on 09:19; Start 08/18/17 at 09:00 Insulin Aspart (NovoLOG) 0-5 UNITS TIDAC SQ Last administered on 08/21/17at 17: 48; Start 08/18/17 at 07:30 Dextrose 12.5 gm PRN Q15MIN PRN IV SEE COMMENTS; Start 08/18/17 at 03:45 Insulin Detemir (Levemir) 64 units QHS SQ Last administered on 08/21/17 19:51 ; Start 08/18/17 at 21:00 Fosfomycin Tromethamine (Monurol) 3 gm 1X ONCE PO Last administered on at 14:32; Start 08/20/17 at 14:00; Stop 08/20/17 at 14:01; Status DC Buspirone HCl (Buspar) 5 mg BID92 PO Last administered on 08/21/17at 15:05; Start 08/21/17 at 09:00 Active Scripts Active Reported Novolog Flexpen (Insulin Aspart) 100 Unit/1 Ml Insuln.pen 0-10 Unit SQ TIDAC Sliding Scale: Accucheck: 150-200 = 2 units 201-250 = 4 units 251-300 = 6 units 301-400 = 8 units 401-500 = 10 units Call PCP if > than 500 or < 70 Basaglar Kwikpen U-100 (Insulin Glargine,Hum.rec.anlog) 100 Unit/1 Ml Insuln.pen 64 Unit SQ QHS Analpram Hc 2.5% Cream (Hydrocortisone/Pramoxine) 30 Gm Cream.appl 1 Yessica RC PRN BID PRN Vitamin D3 (Cholecalciferol (Vitamin D3)) 1,000 Unit Tablet 2,000 Unit PO DAILY Miralax (Polyethylene Glycol 3350) 119 Gm Powder 17 Gm PO DAILY Metoprolol Tartrate 25 Mg Tablet 25 Mg PO BID Namenda (Memantine Hcl) 10 Mg Tablet 10 Mg PO BID Levothyroxine Sodium 125 Mcg Tablet 125 Mcg PO DAILY06 Cymbalta (Duloxetine Hcl) 60 Mg Capsule. 60 Mg PO DAILY Aricept (Donepezil Hcl) 10 Mg Tablet 10 Mg PO BID Colace (Docusate Sodium) 100 Mg Capsule 100 Mg PO DAILY Plavix (Clopidogrel Bisulfate) 75 Mg Tablet 75 Mg PO DAILY Centrum Silver Tablet (Multivits-Min/Fa/Lycopene/Lut) 1 Each Tablet 1 Tab PO DAILY Calcium 600 + Vit D 400 Softgl (Calcium Carbonate/Vitamin D3) 1 Each Capsule 1 Cap PO BIDWMEALS Aspir-Low (Aspirin) 81 Mg Tablet. 81 Mg PO DAILY Norvasc (Amlodipine Besylate) 10 Mg Tablet 10 Mg PO DAILY I have reviewed the current psychotropics carefully including drug interactions. Risk benefit ratio favors no change other than as noted in my dictated progress note. 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
--- NOTE | 2017-08-21 23:46 | PN ---
DATE: 08/19/2017 This is a late entry for 08/19/2017 and covers elements not covered in my initial note of 08/19/2017. I met with the patient evening of 08/19/2017. The patient's blood sugar was somewhat elevated at 252 and she is on the NovoLog sliding scale. UA shows gram-negative rods. She remains confused, but otherwise calm, compliant, somewhat delusional per nursing report. REVIEW OF SYSTEMS: No CV, , pulmonary, eye, ENT system symptoms on review. Gait unsteady, with walker. MENTAL STATUS EXAM: Oriented to herself. Insight, judgment, recent and remote memory, attention, concentration, fund of knowledge poor, consistent with her diagnosis as mentioned in my initial note. IMPRESSION: Major neurocognitive disorder, Alzheimer, vascular with delusion, depression. PLAN: Continue current psychotropics. Treat UTI if positive. MAN Koko MARIE MD DR: FENG/j[place] JOB#: [id number] / [id number]
--- NOTE | 2017-08-21 23:48 | PN ---
DATE: 08/20/2017 This is a late entry for 08/20/2017 and covers elements not covered in my initial note of 08/20/2017. I met with the patient the evening of 08/20/2017. The patient does have a UTI, treated on Monurol x 1. Slept 6-1/2 hours, took a nap in the afternoon, remain somewhat anxious, was exit seeking after breakfast, wandering suspicious with her medications, then pleasant, irritable when family visited. No CV, , pulmonary, eye, ENT system symptoms on review. Gait unsteady with walker. MENTAL STATUS EXAM: Oriented to herself. Insight, judgment, recent and remote memory, attention, concentration, fund of knowledge poor, consistent with her diagnosis as mentioned in my initial note. IMPRESSION: Major neurocognitive disorder, Alzheimer, vascular with depression, delusion, behavioral disturbance. PLAN: Continue current psychotropic. Start BuSpar 5 mg twice a day for anxiety, irritability, mood lability. MAN Koko MARIE MD DR: FENG/[place] JOB#: [id number] / [id number]
[2017-08-22] MEDS: LEVOTHYROXINE 125 MCG TABLET PO SCH (05:21)
[2017-08-22 05:49] VITALS: BP 122/55
[2017-08-22] MEDS: INSULIN ASPART 300 UNITS/3 ML INSULN.PEN SQ SCH ×3 (07:30→17:14)
[2017-08-22] MEDS: CALCIUM CARB/VIT D3 500/200 TABLET PO SCH ×2 (09:12→17:08)
[2017-08-22] MEDS: DONEPEZIL HCL 10 MG TABLET PO SCH ×2 (09:12→19:50)
[2017-08-22] MEDS: amLODIPine BESYLATE 10 MG TABLET PO SCH (09:12)
[2017-08-22] MEDS: MULTIVITAMIN with MINERAL TABLET. PO SCH (09:12)
[2017-08-22] MEDS: CLOPIDOGREL BISULFATE 75 MG TABLET PO SCH (09:12)
[2017-08-22] MEDS: ASPIRIN ENTERIC COATED 81 MG TABLET.DR. PO SCH (09:12)
[2017-08-22] MEDS: DULoxetine HCL 60 MG CAPSULE.DR PO SCH (09:13)
[2017-08-22] MEDS: DOCUSATE SODIUM 100 MG CAPSULE PO SCH (09:13)
[2017-08-22] MEDS: METOPROLOL TART IMMED RELEASE 25 MG TABLET PO SCH ×2 (09:13→19:50)
[2017-08-22] MEDS: busPIRone 5 MG TABLET. PO SCH ×2 (09:13→17:08)
[2017-08-22] MEDS: CHOLECALCIFEROL (VITAMIN D3) 1,000 UNIT TABLET PO SCH (09:13)
[2017-08-22] MEDS: MEMANTINE 10 MG TABLET. PO SCH ×2 (09:13→19:50)
[2017-08-22] MEDS: POLYETHYLENE GLYCOL 3350 17 GM PACKET. PO SCH (09:13)
[2017-08-22 16:44] VITALS: BP 160/68
[2017-08-22] MEDS: INSULIN DETEMIR 300 UNITS/3 ML INSULN.PEN. SQ SCH (19:52)
--- NOTE | 2017-08-22 19:59 | PDOC ---
Exam Note: Basil Note: Please also refer to the separate dictated note~for this date of service dictated separately.~Patient seen individually. Discussed the patient with Nursing staff reviewed the chart.~Reviewed interim history and current functioning. Reviewed vital signs,~Labs/ Radiology~and current medications noted below. Continue current treatment with the changes noted in the dictated addendum note Assessment: Vital Signs: Vital Signs Date Time Temp Pulse Resp B/P (MAP) Pulse Ox O2 Delivery O2 Flow Rate FiO2 08/22/17 19:50 74 160/68 08/22/17 16:44 98.8 18 98 08/22/17 05:49 Room Air I&O Intake and Output 08/22/17 07:00 Intake Total 840 ml Balance 840 ml Intake Oral 840 ml # Voids 1 Labs: Laboratory Tests Test 08/22/17 07:36 08/22/17 11:57 08/22/17 17:02 08/22/17 19:17 Glucose (Fingerstick) 154 mg/dL (70-99) H 184 mg/dL (70-99) H 220 mg/dL (70-99) H 262 mg/dL (70-99) H Current Medications: Meds: Current Medications Al Hydroxide/Mg Hydroxide (Mylanta Plus Xs) 15 ml PRN AFTMEALHC PRN PO DYSPEPSIA; Start 08/18/17 at 03:45 Magnesium Hydroxide (Milk Of Magnesia) 2,400 mg PRN QHS PRN PO CONSTIPATION; Start 08/18/17 at 03:45 Donepezil HCl (Aricept) 10 mg BID PO Last administered on 08/22/17at 19:50; Start 08/18/17 at 09:00 Duloxetine HCl (Cymbalta) 60 mg DAILY PO Last administered on 08/22/17at 09:13; Start 08/18/17 at 09:00 Memantine (Namenda) 10 mg BID PO Last administered on 08/22/17at 19:50; Start at 09:00 Amlodipine Besylate (Norvasc) 10 mg DAILY PO Last administered on 08/22/17at 09: 12; Start 08/18/17 at 09:00 Aspirin (Aspirin Enteric Coated) 81 mg DAILY PO Last administered on 08/22/17at 09:12; Start 08/18/17 at 09:00 Vitamin D (Vitamin D3) 2,000 unit DAILY PO Last administered on 08/22/17 09:13 ; Start 08/18/17 at 09:00 Clopidogrel Bisulfate (Plavix) 75 mg DAILY PO Last administered on 08/22/17 09 :12; Start 08/18/17 at 09:00 Docusate Sodium (Colace) 100 mg DAILY PO Last administered on 08/22/17 09:13; Start 08/18/17 at 09:00 Levothyroxine Sodium (Synthroid) 125 mcg DAILY06 PO Last administered on 05:21; Start 08/18/17 at 06:00 Metoprolol Tartrate (Lopressor) 25 mg BID PO Last administered on 08/22/17 19: 50; Start 08/18/17 at 09:00 Polyethylene Glycol (miraLAX) 17 gm DAILY PO Last administered on 08/22/17 09: 13; Start 08/18/17 at 09:00 Calcium/Vitamin D (Oscal D 500mg/ 200uts) 1 tab BIDWMEALS PO Last administered on 08/22/17 17:08; Start 08/18/17 at 08:00 Hydrocortisone (Proctosol-Hc) 1 yessica PRN BID PRN RC HEMORRHOID PAIN; Start 08/18 at 04:30 Multivitamins/ Calcium (Thera-M Plus) 1 tab DAILY PO Last administered on 09:12; Start 08/18/17 at 09:00 Insulin Aspart (NovoLOG) 0-5 UNITS TIDAC SQ Last administered on 08/22/17 17: 14; Start 08/18/17 at 07:30 Dextrose 12.5 gm PRN Q15MIN PRN IV SEE COMMENTS; Start 08/18/17 at 03:45 Insulin Detemir (Levemir) 64 units QHS SQ Last administered on 08/22/17 19:52 ; Start 08/18/17 at 21:00 Fosfomycin Tromethamine (Monurol) 3 gm 1X ONCE PO Last administered on 14:32; Start 08/20/17 at 14:00; Stop 08/20/17 at 14:01; Status DC Buspirone HCl (Buspar) 5 mg BID92 PO Last administered on 2/21/18at 17:08; Start 08/21/17 at 09:00; Stop 08/22/17 at 21:00 Buspirone HCl (Buspar) 5 mg TID@0900,1300,1700 PO ; Start 08/23/17 at 09:00 Active Scripts Active Reported Novolog Flexpen (Insulin Aspart) 100 Unit/1 Ml Insuln.pen 0-10 Unit SQ TIDAC Sliding Scale: Accucheck: 150-200 = 2 units 201-250 = 4 units 251-300 = 6 units 301-400 = 8 units 401-500 = 10 units Call PCP if > than 500 or < 70 Basaglar Kwikpen U-100 (Insulin Glargine,Hum.rec.anlog) 100 Unit/1 Ml Insuln.pen 64 Unit SQ QHS Analpram Hc 2.5% Cream (Hydrocortisone/Pramoxine) 30 Gm Cream.appl 1 Yessica RC PRN BID PRN Vitamin D3 (Cholecalciferol (Vitamin D3)) 1,000 Unit Tablet 2,000 Unit PO DAILY Miralax (Polyethylene Glycol 3350) 119 Gm Powder 17 Gm PO DAILY Metoprolol Tartrate 25 Mg Tablet 25 Mg PO BID Namenda (Memantine Hcl) 10 Mg Tablet 10 Mg PO BID Levothyroxine Sodium 125 Mcg Tablet 125 Mcg PO DAILY06 Cymbalta (Duloxetine Hcl) 60 Mg Capsule. 60 Mg PO DAILY Aricept (Donepezil Hcl) 10 Mg Tablet 10 Mg PO BID Colace (Docusate Sodium) 100 Mg Capsule 100 Mg PO DAILY Plavix (Clopidogrel Bisulfate) 75 Mg Tablet 75 Mg PO DAILY Centrum Silver Tablet (Multivits-Min/Fa/Lycopene/Lut) 1 Each Tablet 1 Tab PO DAILY Calcium 600 + Vit D 400 Softgl (Calcium Carbonate/Vitamin D3) 1 Each Capsule 1 Cap PO BIDWMEALS Aspir-Low (Aspirin) 81 Mg Tablet. 81 Mg PO DAILY Norvasc (Amlodipine Besylate) 10 Mg Tablet 10 Mg PO DAILY I have reviewed the current psychotropics carefully including drug interactions. Risk benefit ratio favors no change other than as noted in my dictated progress note. 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
--- NOTE | 2017-08-22 21:24 | PN ---
DATE: 08/21/2017 PSYCHIATRIC PROGRESS NOTE This is a late entry of 08/21/2017 covers elements not covered in my initial note of 08/21/2017. HISTORY OF PRESENT ILLNESS: I met with the patient in the evening of 08/21/2017 in her room. She is withdrawn, spends much time in her room, confused, otherwise cooperative, less anxious. REVIEW OF SYSTEMS: No CV, , pulmonary, eye system symptoms on review. Reliability poor. MENTAL STATUS EXAM: Oriented to herself. Insight, judgment, recent and remote memory, attention, concentration, fund of knowledge poor, consistent with her diagnosis. IMPRESSION: Major neurocognitive disorder, Alzheimer, vascular with depression, delusion, behavioral disturbance. Status post urinary tract infection. PLAN: Continue psychotropics mentioned in my initial note. Adjust as clinically indicated. MAN Koko MARIE MD DR: FENG/[place] JOB#: [id number] / [id number]
[2017-08-23] MEDS: LEVOTHYROXINE 125 MCG TABLET PO SCH (05:57)
[2017-08-23 06:24] VITALS: BP 187/78
[2017-08-23] MEDS: INSULIN ASPART 300 UNITS/3 ML INSULN.PEN SQ SCH ×3 (07:30→17:21)
[2017-08-23] MEDS: DOCUSATE SODIUM 100 MG CAPSULE PO SCH (08:24)
[2017-08-23] MEDS: CALCIUM CARB/VIT D3 500/200 TABLET PO SCH ×2 (08:24→17:20)
[2017-08-23] MEDS: MEMANTINE 10 MG TABLET. PO SCH ×2 (08:24→20:06)
[2017-08-23] MEDS: CHOLECALCIFEROL (VITAMIN D3) 1,000 UNIT TABLET PO SCH (08:24)
[2017-08-23] MEDS: POLYETHYLENE GLYCOL 3350 17 GM PACKET. PO SCH (08:24)
[2017-08-23] MEDS: MULTIVITAMIN with MINERAL TABLET. PO SCH (08:24)
[2017-08-23] MEDS: ASPIRIN ENTERIC COATED 81 MG TABLET.DR. PO SCH (08:25)
[2017-08-23] MEDS: amLODIPine BESYLATE 10 MG TABLET PO SCH (08:25)
[2017-08-23] MEDS: busPIRone 5 MG TABLET. PO SCH ×3 (08:25→17:20)
[2017-08-23] MEDS: DONEPEZIL HCL 10 MG TABLET PO SCH ×2 (08:25→20:06)
[2017-08-23] MEDS: DULoxetine HCL 60 MG CAPSULE.DR PO SCH (08:25)
[2017-08-23] MEDS: METOPROLOL TART IMMED RELEASE 25 MG TABLET PO SCH ×2 (08:25→20:07)
[2017-08-23] MEDS: CLOPIDOGREL BISULFATE 75 MG TABLET PO SCH (08:25)
[2017-08-23 16:25] VITALS: BP 123/61
--- NOTE | 2017-08-23 19:50 | PDOC ---
Exam Note: Basil Note: Please also refer to the separate dictated note~for this date of service dictated separately.~Patient seen individually. Discussed the patient with Nursing staff reviewed the chart.~Reviewed interim history and current functioning. Reviewed vital signs,~Labs/ Radiology~and current medications noted below. Continue current treatment with the changes noted in the dictated addendum note Assessment: Vital Signs: Vital Signs Date Time Temp Pulse Resp B/P (MAP) Pulse Ox O2 Delivery O2 Flow Rate FiO2 08/23/17 16:25 97.2 80 16 123/61 (81) 93 Room Air I&O Intake and Output 08/23/17 07:00 Intake Total 840 ml Balance 840 ml Intake Oral 840 ml # Voids 1 Labs: Laboratory Tests Test 08/23/17 07:28 08/23/17 11:21 08/23/17 17:05 08/23/17 19:08 Glucose (Fingerstick) 91 mg/dL (70-99) 207 mg/dL (70-99) H 186 mg/dL (70-99) H 211 mg/dL (70-99) H Current Medications: Meds: Current Medications Al Hydroxide/Mg Hydroxide (Mylanta Plus Xs) 15 ml PRN AFTMEALHC PRN PO DYSPEPSIA; Start 08/18/17 at 03:45 Magnesium Hydroxide (Milk Of Magnesia) 2,400 mg PRN QHS PRN PO CONSTIPATION; Start 08/18/17 at 03:45 Donepezil HCl (Aricept) 10 mg BID PO Last administered on 08/23/17at 08:25; Start 08/18/17 at 09:00 Duloxetine HCl (Cymbalta) 60 mg DAILY PO Last administered on 08/23/17at 08:25; Start 08/18/17 at 09:00 Memantine (Namenda) 10 mg BID PO Last administered on 08/23/17at 08:24; Start at 09:00 Amlodipine Besylate (Norvasc) 10 mg DAILY PO Last administered on 08/23/17at 08: 25; Start 08/18/17 at 09:00 Aspirin (Aspirin Enteric Coated) 81 mg DAILY PO Last administered on 08/23/17at 08:25; Start 08/18/17 at 09:00 Vitamin D (Vitamin D3) 2,000 unit DAILY PO Last administered on 08/23/17 08:24 ; Start 08/18/17 at 09:00 Clopidogrel Bisulfate (Plavix) 75 mg DAILY PO Last administered on 08/23/17 08 :25; Start 08/18/17 at 09:00 Docusate Sodium (Colace) 100 mg DAILY PO Last administered on 08/23/17 08:24; Start 08/18/17 at 09:00 Levothyroxine Sodium (Synthroid) 125 mcg DAILY06 PO Last administered on 05:57; Start 08/18/17 at 06:00 Metoprolol Tartrate (Lopressor) 25 mg BID PO Last administered on 08/23/17 08: 25; Start 08/18/17 at 09:00 Polyethylene Glycol (miraLAX) 17 gm DAILY PO Last administered on 08/23/17 08: 24; Start 08/18/17 at 09:00 Calcium/Vitamin D (Oscal D 500mg/ 200uts) 1 tab BIDWMEALS PO Last administered on 08/23/17 17:20; Start 08/18/17 at 08:00 Hydrocortisone (Proctosol-Hc) 1 yessica PRN BID PRN RC HEMORRHOID PAIN; Start 08/18 at 04:30 Multivitamins/ Calcium (Thera-M Plus) 1 tab DAILY PO Last administered on 08:24; Start 08/18/17 at 09:00 Insulin Aspart (NovoLOG) 0-5 UNITS TIDAC SQ Last administered on 08/23/17 17: 21; Start 08/18/17 at 07:30 Dextrose 12.5 gm PRN Q15MIN PRN IV SEE COMMENTS; Start 08/18/17 at 03:45 Insulin Detemir (Levemir) 64 units QHS SQ Last administered on 08/22/17 19:52 ; Start 08/18/17 at 21:00 Fosfomycin Tromethamine (Monurol) 3 gm 1X ONCE PO Last administered on 14:32; Start 08/20/17 at 14:00; Stop 08/20/17 at 14:01; Status DC Buspirone HCl (Buspar) 5 mg BID92 PO Last administered on 08/22/17 17:08; Start 08/21/17 at 09:00; Stop 08/22/17 at 21:00; Status DC Buspirone HCl (Buspar) 5 mg TID@0900,1300,1700 PO Last administered on at 17:20; Start 08/23/17 at 09:00 Active Scripts Active Reported Novolog Flexpen (Insulin Aspart) 100 Unit/1 Ml Insuln.pen 0-10 Unit SQ TIDAC Sliding Scale: Accucheck: 150-200 = 2 units 201-250 = 4 units 251-300 = 6 units 301-400 = 8 units 401-500 = 10 units Call PCP if > than 500 or < 70 Basaglar Kwikpen U-100 (Insulin Glargine,Hum.rec.anlog) 100 Unit/1 Ml Insuln.pen 64 Unit SQ QHS Analpram Hc 2.5% Cream (Hydrocortisone/Pramoxine) 30 Gm Cream.appl 1 Yessica RC PRN BID PRN Vitamin D3 (Cholecalciferol (Vitamin D3)) 1,000 Unit Tablet 2,000 Unit PO DAILY Miralax (Polyethylene Glycol 3350) 119 Gm Powder 17 Gm PO DAILY Metoprolol Tartrate 25 Mg Tablet 25 Mg PO BID Namenda (Memantine Hcl) 10 Mg Tablet 10 Mg PO BID Levothyroxine Sodium 125 Mcg Tablet 125 Mcg PO DAILY06 Cymbalta (Duloxetine Hcl) 60 Mg Capsule. 60 Mg PO DAILY Aricept (Donepezil Hcl) 10 Mg Tablet 10 Mg PO BID Colace (Docusate Sodium) 100 Mg Capsule 100 Mg PO DAILY Plavix (Clopidogrel Bisulfate) 75 Mg Tablet 75 Mg PO DAILY Centrum Silver Tablet (Multivits-Min/Fa/Lycopene/Lut) 1 Each Tablet 1 Tab PO DAILY Calcium 600 + Vit D 400 Softgl (Calcium Carbonate/Vitamin D3) 1 Each Capsule 1 Cap PO BIDWMEALS Aspir-Low (Aspirin) 81 Mg Tablet. 81 Mg PO DAILY Norvasc (Amlodipine Besylate) 10 Mg Tablet 10 Mg PO DAILY I have reviewed the current psychotropics carefully including drug interactions. Risk benefit ratio favors no change other than as noted in my dictated progress note. 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
[2017-08-23] MEDS: INSULIN DETEMIR 300 UNITS/3 ML INSULN.PEN. SQ SCH (20:10)
[2017-08-24 06:17] VITALS: BP 169/71
[2017-08-24] MEDS: LEVOTHYROXINE 125 MCG TABLET PO SCH (06:24)
[2017-08-24] MEDS: INSULIN ASPART 300 UNITS/3 ML INSULN.PEN SQ SCH ×3 (07:30→19:24)
[2017-08-24] MEDS: ASPIRIN ENTERIC COATED 81 MG TABLET.DR. PO SCH (08:01)
[2017-08-24] MEDS: DULoxetine HCL 60 MG CAPSULE.DR PO SCH (08:01)
[2017-08-24] MEDS: amLODIPine BESYLATE 10 MG TABLET PO SCH (08:01)
[2017-08-24] MEDS: POLYETHYLENE GLYCOL 3350 17 GM PACKET. PO SCH (08:01)
[2017-08-24] MEDS: DOCUSATE SODIUM 100 MG CAPSULE PO SCH (08:01)
[2017-08-24] MEDS: busPIRone 5 MG TABLET. PO SCH ×3 (08:01→18:26)
[2017-08-24] MEDS: MEMANTINE 10 MG TABLET. PO SCH ×2 (08:02→20:23)
[2017-08-24] MEDS: CLOPIDOGREL BISULFATE 75 MG TABLET PO SCH (08:02)
[2017-08-24] MEDS: CHOLECALCIFEROL (VITAMIN D3) 1,000 UNIT TABLET PO SCH (08:02)
[2017-08-24] MEDS: DONEPEZIL HCL 10 MG TABLET PO SCH ×2 (08:02→20:23)
[2017-08-24] MEDS: METOPROLOL TART IMMED RELEASE 25 MG TABLET PO SCH ×2 (08:02→20:23)
[2017-08-24] MEDS: MULTIVITAMIN with MINERAL TABLET. PO SCH (08:02)
[2017-08-24] MEDS: CALCIUM CARB/VIT D3 500/200 TABLET PO SCH ×2 (08:02→18:26)
[2017-08-24 16:02] VITALS: BP 156/67
--- NOTE | 2017-08-24 19:40 | PDOC ---
Exam Note: Basil Note: Please also refer to the separate dictated note~for this date of service dictated separately.~Patient seen individually. Discussed the patient with Nursing staff reviewed the chart.~Reviewed interim history and current functioning. Reviewed vital signs,~Labs/ Radiology~and current medications noted below. Continue current treatment with the changes noted in the dictated addendum note Assessment: Vital Signs: Vital Signs Date Time Temp Pulse Resp B/P (MAP) Pulse Ox O2 Delivery O2 Flow Rate FiO2 08/24/17 16:02 97.9 65 18 156/67 (96) 99 08/23/17 16:25 Room Air I&O Intake and Output 08/24/17 07:00 Intake Total 840 ml Balance 840 ml Intake Oral 840 ml # Voids 1 Labs: Laboratory Tests Test 08/24/17 07:45 08/24/17 11:44 08/24/17 16:19 08/24/17 19:09 Glucose (Fingerstick) 117 mg/dL (70-99) H 205 mg/dL (70-99) H 220 mg/dL (70-99) H 317 mg/dL (70-99) H Current Medications: Meds: Current Medications Al Hydroxide/Mg Hydroxide (Mylanta Plus Xs) 15 ml PRN AFTMEALHC PRN PO DYSPEPSIA; Start 08/18/17 at 03:45 Magnesium Hydroxide (Milk Of Magnesia) 2,400 mg PRN QHS PRN PO CONSTIPATION; Start 08/18/17 at 03:45 Donepezil HCl (Aricept) 10 mg BID PO Last administered on 08/24/17at 08:02; Start 08/18/17 at 09:00 Duloxetine HCl (Cymbalta) 60 mg DAILY PO Last administered on 08/24/17at 08:01; Start 08/18/17 at 09:00 Memantine (Namenda) 10 mg BID PO Last administered on 08/24/17at 08:02; Start at 09:00 Amlodipine Besylate (Norvasc) 10 mg DAILY PO Last administered on 08/24/17at 08: 01; Start 08/18/17 at 09:00 Aspirin (Aspirin Enteric Coated) 81 mg DAILY PO Last administered on 08/24/17at 08:01; Start 08/18/17 at 09:00 Vitamin D (Vitamin D3) 2,000 unit DAILY PO Last administered on 08/24/17 08:02 ; Start 08/18/17 at 09:00 Clopidogrel Bisulfate (Plavix) 75 mg DAILY PO Last administered on 08/24/17 08 :02; Start 08/18/17 at 09:00 Docusate Sodium (Colace) 100 mg DAILY PO Last administered on 08/24/17 08:01; Start 08/18/17 at 09:00 Levothyroxine Sodium (Synthroid) 125 mcg DAILY06 PO Last administered on 06:24; Start 08/18/17 at 06:00 Metoprolol Tartrate (Lopressor) 25 mg BID PO Last administered on 08/24/17 08: 02; Start 08/18/17 at 09:00 Polyethylene Glycol (miraLAX) 17 gm DAILY PO Last administered on 08/24/17 08: 01; Start 08/18/17 at 09:00 Calcium/Vitamin D (Oscal D 500mg/ 200uts) 1 tab BIDWMEALS PO Last administered on 08/24/17 18:26; Start 08/18/17 at 08:00 Hydrocortisone (Proctosol-Hc) 1 yessica PRN BID PRN RC HEMORRHOID PAIN; Start 08/18 at 04:30 Multivitamins/ Calcium (Thera-M Plus) 1 tab DAILY PO Last administered on 08:02; Start 08/18/17 at 09:00 Insulin Aspart (NovoLOG) 0-5 UNITS TIDAC SQ Last administered on 08/24/17 19: 24; Start 08/18/17 at 07:30 Dextrose 12.5 gm PRN Q15MIN PRN IV SEE COMMENTS; Start 08/18/17 at 03:45 Insulin Detemir (Levemir) 64 units QHS SQ Last administered on 08/23/17 20:10 ; Start 08/18/17 at 21:00 Fosfomycin Tromethamine (Monurol) 3 gm 1X ONCE PO Last administered on at 14:32; Start 08/20/17 at 14:00; Stop 08/20/17 at 14:01; Status DC Buspirone HCl (Buspar) 5 mg BID92 PO Last administered on 2/21/18at 17:08; Start 08/21/17 at 09:00; Stop 08/22/17 at 21:00; Status DC Buspirone HCl (Buspar) 5 mg TID@0900,1300,1700 PO Last administered on at 18:26; Start 08/23/17 at 09:00 Active Scripts Active Reported Novolog Flexpen (Insulin Aspart) 100 Unit/1 Ml Insuln.pen 0-10 Unit SQ TIDAC Sliding Scale: Accucheck: 150-200 = 2 units 201-250 = 4 units 251-300 = 6 units 301-400 = 8 units 401-500 = 10 units Call PCP if > than 500 or < 70 Basaglar Kwikpen U-100 (Insulin Glargine,Hum.rec.anlog) 100 Unit/1 Ml Insuln.pen 64 Unit SQ QHS Analpram Hc 2.5% Cream (Hydrocortisone/Pramoxine) 30 Gm Cream.appl 1 Yessica RC PRN BID PRN Vitamin D3 (Cholecalciferol (Vitamin D3)) 1,000 Unit Tablet 2,000 Unit PO DAILY Miralax (Polyethylene Glycol 3350) 119 Gm Powder 17 Gm PO DAILY Metoprolol Tartrate 25 Mg Tablet 25 Mg PO BID Namenda (Memantine Hcl) 10 Mg Tablet 10 Mg PO BID Levothyroxine Sodium 125 Mcg Tablet 125 Mcg PO DAILY06 Cymbalta (Duloxetine Hcl) 60 Mg Capsule. 60 Mg PO DAILY Aricept (Donepezil Hcl) 10 Mg Tablet 10 Mg PO BID Colace (Docusate Sodium) 100 Mg Capsule 100 Mg PO DAILY Plavix (Clopidogrel Bisulfate) 75 Mg Tablet 75 Mg PO DAILY Centrum Silver Tablet (Multivits-Min/Fa/Lycopene/Lut) 1 Each Tablet 1 Tab PO DAILY Calcium 600 + Vit D 400 Softgl (Calcium Carbonate/Vitamin D3) 1 Each Capsule 1 Cap PO BIDWMEALS Aspir-Low (Aspirin) 81 Mg Tablet. 81 Mg PO DAILY Norvasc (Amlodipine Besylate) 10 Mg Tablet 10 Mg PO DAILY I have reviewed the current psychotropics carefully including drug interactions. Risk benefit ratio favors no change other than as noted in my dictated progress note. 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
[2017-08-24] MEDS: INSULIN DETEMIR 300 UNITS/3 ML INSULN.PEN. SQ SCH (20:34)
--- NOTE | 2017-08-24 21:21 | PN ---
DATE: 08/22/2017 PSYCHIATRIC PROGRESS NOTE This late entry 08/22/2017 covers elements not covered in my initial note 08/22/2017. SUBJECTIVE: I met with the patient evening of 08/22/2017. The patient remains confused, pleasant, compliant with meds, and comes out for her meals. REVIEW OF SYSTEMS: No CV, , eye, ENT, or pulmonary system symptoms on review. Reliability poor. MENTAL STATUS EXAM: Oriented to herself. Insight, judgment, recent and remote memory, attention, concentration, fund of knowledge poor, consistent with her diagnosis mentioned in my initial note. IMPRESSION: Major neurocognitive disorder, Alzheimer, vascular with delusion, depression, behavioral disturbance. PLAN: Continue current psychotropics. Starting 08/23/2017, increase BuSpar to 5 mg 3 times a day. Rest unchanged from initial note. MAN Koko MARIE MD DR: FENG/[place] JOB#: [id number] / [id number]
--- NOTE | 2017-08-25 01:25 | PN ---
DATE: 08/23/2017 This late entry 08/23/2017 covers elements not covered in my initial note 08/23/2017. SUBJECTIVE: The patient staffed at a treatment team meeting with the entire team morning of 08/23/2017 and the patient's daughter, Rosanne, attended this conference. Reviewed the history at length. She was living at [facility] and then transferred to the [facility] at [facility], and previously, she was also at other facility and will be transferring to [facility] in [place]. Daughter shared the patient had been on Seroquel, Geodon in the past, did not respond very well. She slept 8 hours previous evening. She was hallucinating, thinking another male patient was her nephew and brother. REVIEW OF SYSTEMS: No CV, , pulmonary, eye, ENT system symptoms on review. Reliability poor. MENTAL STATUS EXAM: Oriented to herself. Insight, judgment, recent and remote memory, attention, concentration, fund of knowledge poor, consistent with her diagnosis mentioned in my initial note. IMPRESSION: Major neurocognitive disorder, Alzheimer, vascular with depression, delusion, behavioral disturbance. Rest unchanged. PLAN: Continue psychotropics mentioned in my initial note, Cymbalta, BuSpar, Aricept, Namenda for now. HITESH MARIE MD DR: FENG/jamaica JOB#: [id number] / [id number]
[2017-08-25] MEDS: LEVOTHYROXINE 125 MCG TABLET PO SCH (06:03)
[2017-08-25 06:41] VITALS: BP 145/63
[2017-08-25] MEDS: INSULIN ASPART 300 UNITS/3 ML INSULN.PEN SQ SCH ×3 (07:30→18:17)
[2017-08-25] MEDS: POLYETHYLENE GLYCOL 3350 17 GM PACKET. PO SCH (07:45)
[2017-08-25] MEDS: MULTIVITAMIN with MINERAL TABLET. PO SCH (07:45)
[2017-08-25] MEDS: CHOLECALCIFEROL (VITAMIN D3) 1,000 UNIT TABLET PO SCH (07:45)
[2017-08-25] MEDS: CLOPIDOGREL BISULFATE 75 MG TABLET PO SCH (07:46)
[2017-08-25] MEDS: ASPIRIN ENTERIC COATED 81 MG TABLET.DR. PO SCH (07:46)
[2017-08-25] MEDS: MEMANTINE 10 MG TABLET. PO SCH ×2 (07:46→20:57)
[2017-08-25] MEDS: CALCIUM CARB/VIT D3 500/200 TABLET PO SCH ×2 (07:46→18:16)
[2017-08-25] MEDS: busPIRone 5 MG TABLET. PO SCH ×3 (07:46→18:16)
[2017-08-25] MEDS: METOPROLOL TART IMMED RELEASE 25 MG TABLET PO SCH ×2 (07:46→20:56)
[2017-08-25] MEDS: DONEPEZIL HCL 10 MG TABLET PO SCH ×2 (07:46→20:56)
[2017-08-25] MEDS: DULoxetine HCL 60 MG CAPSULE.DR PO SCH (07:47)
[2017-08-25] MEDS: amLODIPine BESYLATE 10 MG TABLET PO SCH (07:47)
[2017-08-25] MEDS: DOCUSATE SODIUM 100 MG CAPSULE PO SCH (07:47)
[2017-08-25 16:10] VITALS: BP 146/66
[2017-08-25] MEDS: INSULIN DETEMIR 300 UNITS/3 ML INSULN.PEN. SQ SCH (20:59)
--- NOTE | 2017-08-25 21:58 | PDOC ---
Exam Note: Basil Note: Please also refer to the separate dictated note~for this date of service dictated separately.~Patient seen individually. Discussed the patient with Nursing staff reviewed the chart.~Reviewed interim history and current functioning. Reviewed vital signs,~Labs/ Radiology~and current medications noted below. Continue current treatment with the changes noted in the dictated addendum note Assessment: Vital Signs: Vital Signs Date Time Temp Pulse Resp B/P (MAP) Pulse Ox O2 Delivery O2 Flow Rate FiO2 08/25/17 20:56 85 146/66 08/25/17 16:10 98.1 19 97 08/23/17 16:25 Room Air I&O Intake and Output 08/25/17 07:00 Intake Total 540 ml Balance 540 ml Intake Oral 540 ml # Voids 1 # Bowel Movements 1 Labs: Laboratory Tests Test 08/25/17 07:44 08/25/17 11:14 08/25/17 17:07 08/25/17 19:19 Glucose (Fingerstick) 120 mg/dL (70-99) H 257 mg/dL (70-99) H 186 mg/dL (70-99) H 206 mg/dL (70-99) H Current Medications: Meds: Current Medications Al Hydroxide/Mg Hydroxide (Mylanta Plus Xs) 15 ml PRN AFTMEALHC PRN PO DYSPEPSIA; Start 08/18/17 at 03:45 Magnesium Hydroxide (Milk Of Magnesia) 2,400 mg PRN QHS PRN PO CONSTIPATION; Start 08/18/17 at 03:45 Donepezil HCl (Aricept) 10 mg BID PO Last administered on 08/25/17at 20:56; Start 08/18/17 at 09:00 Duloxetine HCl (Cymbalta) 60 mg DAILY PO Last administered on 08/25/17 07:47; Start 08/18/17 at 09:00 Memantine (Namenda) 10 mg BID PO Last administered on 08/25/17 20:57; Start at 09:00 Amlodipine Besylate (Norvasc) 10 mg DAILY PO Last administered on 08/25/17 07: 47; Start 08/18/17 at 09:00 Aspirin (Aspirin Enteric Coated) 81 mg DAILY PO Last administered on 08/25/17 07:46; Start 08/18/17 at 09:00 Vitamin D (Vitamin D3) 2,000 unit DAILY PO Last administered on 08/25/17 07:45 ; Start 08/18/17 at 09:00 Clopidogrel Bisulfate (Plavix) 75 mg DAILY PO Last administered on 08/25/17 07 :46; Start 08/18/17 at 09:00 Docusate Sodium (Colace) 100 mg DAILY PO Last administered on 08/25/17 07:47; Start 08/18/17 at 09:00 Levothyroxine Sodium (Synthroid) 125 mcg DAILY06 PO Last administered on 06:03; Start 08/18/17 at 06:00 Metoprolol Tartrate (Lopressor) 25 mg BID PO Last administered on 08/25/17 20: 56; Start 08/18/17 at 09:00 Polyethylene Glycol (miraLAX) 17 gm DAILY PO Last administered on 08/25/17 07: 45; Start 08/18/17 at 09:00 Calcium/Vitamin D (Oscal D 500mg/ 200uts) 1 tab BIDWMEALS PO Last administered on 08/25/17 18:16; Start 08/18/17 at 08:00 Hydrocortisone (Proctosol-Hc) 1 yessica PRN BID PRN RC HEMORRHOID PAIN; Start 08/18 at 04:30 Multivitamins/ Calcium (Thera-M Plus) 1 tab DAILY PO Last administered on 07:45; Start 08/18/17 at 09:00 Insulin Aspart (NovoLOG) 0-5 UNITS TIDAC SQ Last administered on 08/25/17 18: 17; Start 08/18/17 at 07:30 Dextrose 12.5 gm PRN Q15MIN PRN IV SEE COMMENTS; Start 08/18/17 at 03:45 Insulin Detemir (Levemir) 64 units QHS SQ Last administered on 08/25/17 20:59 ; Start 08/18/17 at 21:00 Fosfomycin Tromethamine (Monurol) 3 gm 1X ONCE PO Last administered on 14:32; Start 08/20/17 at 14:00; Stop 08/20/17 at 14:01; Status DC Buspirone HCl (Buspar) 5 mg BID92 PO Last administered on 2/21/18at 17:08; Start 08/21/17 at 09:00; Stop 08/22/17 at 21:00; Status DC Buspirone HCl (Buspar) 5 mg TID@0900,1300,1700 PO Last administered on at 18:16; Start 08/23/17 at 09:00 Quetiapine Fumarate (SEROquel) 12.5 mg BID92 PO ; Start 08/26/17 at 09:00 Active Scripts Active Reported Novolog Flexpen (Insulin Aspart) 100 Unit/1 Ml Insuln.pen 0-10 Unit SQ TIDAC Sliding Scale: Accucheck: 150-200 = 2 units 201-250 = 4 units 251-300 = 6 units 301-400 = 8 units 401-500 = 10 units Call PCP if > than 500 or < 70 Basaglar Kwikpen U-100 (Insulin Glargine,Hum.rec.anlog) 100 Unit/1 Ml Insuln.pen 64 Unit SQ QHS Analpram Hc 2.5% Cream (Hydrocortisone/Pramoxine) 30 Gm Cream.appl 1 Yessica RC PRN BID PRN Vitamin D3 (Cholecalciferol (Vitamin D3)) 1,000 Unit Tablet 2,000 Unit PO DAILY Miralax (Polyethylene Glycol 3350) 119 Gm Powder 17 Gm PO DAILY Metoprolol Tartrate 25 Mg Tablet 25 Mg PO BID Namenda (Memantine Hcl) 10 Mg Tablet 10 Mg PO BID Levothyroxine Sodium 125 Mcg Tablet 125 Mcg PO DAILY06 Cymbalta (Duloxetine Hcl) 60 Mg Capsule. 60 Mg PO DAILY Aricept (Donepezil Hcl) 10 Mg Tablet 10 Mg PO BID Colace (Docusate Sodium) 100 Mg Capsule 100 Mg PO DAILY Plavix (Clopidogrel Bisulfate) 75 Mg Tablet 75 Mg PO DAILY Centrum Silver Tablet (Multivits-Min/Fa/Lycopene/Lut) 1 Each Tablet 1 Tab PO DAILY Calcium 600 + Vit D 400 Softgl (Calcium Carbonate/Vitamin D3) 1 Each Capsule 1 Cap PO BIDWMEALS Aspir-Low (Aspirin) 81 Mg Tablet. 81 Mg PO DAILY Norvasc (Amlodipine Besylate) 10 Mg Tablet 10 Mg PO DAILY I have reviewed the current psychotropics carefully including drug interactions. Risk benefit ratio favors no change other than as noted in my dictated progress note. 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
[2017-08-26 06:10] VITALS: BP 178/84
[2017-08-26] MEDS: LEVOTHYROXINE 125 MCG TABLET PO SCH (06:18)
[2017-08-26] MEDS: busPIRone 5 MG TABLET. PO SCH ×3 (07:39→19:13)
[2017-08-26] MEDS: MEMANTINE 10 MG TABLET. PO SCH ×2 (07:39→20:16)
[2017-08-26] MEDS: DONEPEZIL HCL 10 MG TABLET PO SCH ×2 (07:39→20:16)
[2017-08-26] MEDS: POLYETHYLENE GLYCOL 3350 17 GM PACKET. PO SCH (07:39)
[2017-08-26] MEDS: ASPIRIN ENTERIC COATED 81 MG TABLET.DR. PO SCH (07:39)
[2017-08-26] MEDS: CLOPIDOGREL BISULFATE 75 MG TABLET PO SCH (07:40)
[2017-08-26] MEDS: DULoxetine HCL 60 MG CAPSULE.DR PO SCH (07:40)
[2017-08-26] MEDS: CALCIUM CARB/VIT D3 500/200 TABLET PO SCH ×2 (07:40→19:13)
[2017-08-26] MEDS: MULTIVITAMIN with MINERAL TABLET. PO SCH (07:40)
[2017-08-26] MEDS: CHOLECALCIFEROL (VITAMIN D3) 1,000 UNIT TABLET PO SCH (07:40)
[2017-08-26] MEDS: METOPROLOL TART IMMED RELEASE 25 MG TABLET PO SCH ×2 (07:40→20:16)
[2017-08-26] MEDS: DOCUSATE SODIUM 100 MG CAPSULE PO SCH (07:40)
[2017-08-26] MEDS: amLODIPine BESYLATE 10 MG TABLET PO SCH (07:41)
[2017-08-26] MEDS: INSULIN ASPART 300 UNITS/3 ML INSULN.PEN SQ SCH ×3 (07:42→16:30)
[2017-08-26] MEDS: QUEtiapine 25 MG TABLET. PO SCH ×2 (07:44→13:24)
--- NOTE | 2017-08-26 09:56 | PN ---
DATE: 08/24/2017 This late entry 08/24/2017 covers elements not covered in my initial note 08/24/2017. SUBJECTIVE: I met with the patient evening of 08/24/2017. The patient refused her lunch, comes out for breakfast and supper, otherwise spends much time in her room, not aggressive. REVIEW OF SYSTEMS: No CV, , pulmonary, eye, ENT system symptoms on review. Reliability poor. MENTAL STATUS EXAM: Oriented to herself. Insight, judgment, recent and remote memory, attention, concentration, fund of knowledge poor, consistent with her diagnosis mentioned in my initial note. IMPRESSION: Major neurocognitive disorder, Alzheimer, vascular with depression, delusion, behavioral disturbance. Rest unchanged. PLAN: Continue current psychotropics mentioned in my initial note. May increase BuSpar for anxiety in due course. Consider adding Seroquel for her presenting psychotic symptoms and she still seems to have some intermittent hallucinations. HITESH MARIE MD DR: FENG/jamaica JOB#: [id number] / [id number]
--- NOTE | 2017-08-26 09:59 | PN ---
DATE: 08/25/2017 This late entry 08/25/2017 covers elements not covered in my initial note 08/25/2017. Met with the patient evening of 08/25/2017. The patient has been somewhat delusional today. Reviewed history at length very significant for intermittent hallucinations. Daughter is quite concerned about addressing this. Appetite is poor. Daughter does not want Megace. The patient is delusional in the evening, believes she had to go to a wedding at 7:00 p.m. REVIEW OF SYSTEMS: No CV, , pulmonary, eye, ENT system symptoms on review. Reliability poor. MENTAL STATUS EXAM: Oriented to herself. Insight, judgment, recent and remote memory, attention, concentration, fund of knowledge poor, consistent with her diagnosis mentioned in my initial note. IMPRESSION: Major neurocognitive disorder, Alzheimer, vascular with delusion, depression, behavioral disturbance. Rest unchanged. PLAN: Start Seroquel 12.5 mg 9:00 a.m., 2:00 p.m. Continue rest unchanged. The Seroquel should help reduce some of the psychotic symptoms and should be better tolerated than Risperdal at this stage with her dementia. MAN Koko MARIE MD DR: FENG/jamaica JOB#: [id number] / [id number]
[2017-08-26 16:27] VITALS: BP 197/80
--- NOTE | 2017-08-26 19:32 | PDOC ---
Exam Note: Basil Note: Please also refer to the separate dictated note~for this date of service dictated separately.~Patient seen individually. Discussed the patient with Nursing staff reviewed the chart.~Reviewed interim history and current functioning. Reviewed vital signs,~Labs/ Radiology~and current medications noted below. Continue current treatment with the changes noted in the dictated addendum note Assessment: Vital Signs: Vital Signs Date Time Temp Pulse Resp B/P (MAP) Pulse Ox O2 Delivery O2 Flow Rate FiO2 08/26/17 16:27 97.4 63 18 197/80 (119) 97 08/23/17 16:25 Room Air I&O Intake and Output 08/26/17 07:00 Intake Total 960 ml Balance 960 ml Intake Oral 960 ml # Voids 1 Labs: Laboratory Tests Test 08/26/17 07:26 08/26/17 11:44 08/26/17 17:04 08/26/17 19:09 Glucose (Fingerstick) 155 mg/dL (70-99) H 225 mg/dL (70-99) H 138 mg/dL (70-99) H 253 mg/dL (70-99) H Current Medications: Meds: Current Medications Al Hydroxide/Mg Hydroxide (Mylanta Plus Xs) 15 ml PRN AFTMEALHC PRN PO DYSPEPSIA; Start 08/18/17 at 03:45 Magnesium Hydroxide (Milk Of Magnesia) 2,400 mg PRN QHS PRN PO CONSTIPATION; Start 08/18/17 at 03:45 Donepezil HCl (Aricept) 10 mg BID PO Last administered on 08/26/17at 07:39; Start 08/18/17 at 09:00 Duloxetine HCl (Cymbalta) 60 mg DAILY PO Last administered on 08/26/17at 07:40; Start 08/18/17 at 09:00 Memantine (Namenda) 10 mg BID PO Last administered on 08/26/17at 07:39; Start at 09:00 Amlodipine Besylate (Norvasc) 10 mg DAILY PO Last administered on 08/26/17at 07: 41; Start 08/18/17 at 09:00 Aspirin (Aspirin Enteric Coated) 81 mg DAILY PO Last administered on 08/26/17at 07:39; Start 08/18/17 at 09:00 Vitamin D (Vitamin D3) 2,000 unit DAILY PO Last administered on 08/26/17 07:40 ; Start 08/18/17 at 09:00 Clopidogrel Bisulfate (Plavix) 75 mg DAILY PO Last administered on 08/26/17 07 :40; Start 08/18/17 at 09:00 Docusate Sodium (Colace) 100 mg DAILY PO Last administered on 08/26/17 07:40; Start 08/18/17 at 09:00 Levothyroxine Sodium (Synthroid) 125 mcg DAILY06 PO Last administered on 06:18; Start 08/18/17 at 06:00 Metoprolol Tartrate (Lopressor) 25 mg BID PO Last administered on 08/26/17 07: 40; Start 08/18/17 at 09:00 Polyethylene Glycol (miraLAX) 17 gm DAILY PO Last administered on 08/26/17 07: 39; Start 08/18/17 at 09:00 Calcium/Vitamin D (Oscal D 500mg/ 200uts) 1 tab BIDWMEALS PO Last administered on 08/26/17 19:13; Start 08/18/17 at 08:00 Hydrocortisone (Proctosol-Hc) 1 yessica PRN BID PRN RC HEMORRHOID PAIN; Start 08/18 at 04:30 Multivitamins/ Calcium (Thera-M Plus) 1 tab DAILY PO Last administered on 07:40; Start 08/18/17 at 09:00 Insulin Aspart (NovoLOG) 0-5 UNITS TIDAC SQ Last administered on 08/26/17 13: 25; Start 08/18/17 at 07:30 Dextrose 12.5 gm PRN Q15MIN PRN IV SEE COMMENTS; Start 08/18/17 at 03:45 Insulin Detemir (Levemir) 64 units QHS SQ Last administered on 08/25/17 20:59 ; Start 08/18/17 at 21:00 Fosfomycin Tromethamine (Monurol) 3 gm 1X ONCE PO Last administered on at 14:32; Start 08/20/17 at 14:00; Stop 08/20/17 at 14:01; Status DC Buspirone HCl (Buspar) 5 mg BID92 PO Last administered on 08/22/17at 17:08; Start 08/21/17 at 09:00; Stop 08/22/17 at 21:00; Status DC Buspirone HCl (Buspar) 5 mg TID@0900,1300,1700 PO Last administered on at 19:13; Start 08/23/17 at 09:00 Quetiapine Fumarate (SEROquel) 12.5 mg BID92 PO Last administered on 08/26/17at 13:24; Start 08/26/17 at 09:00 Active Scripts Active Reported Novolog Flexpen (Insulin Aspart) 100 Unit/1 Ml Insuln.pen 0-10 Unit SQ TIDAC Sliding Scale: Accucheck: 150-200 = 2 units 201-250 = 4 units 251-300 = 6 units 301-400 = 8 units 401-500 = 10 units Call PCP if > than 500 or < 70 Basaglar Kwikpen U-100 (Insulin Glargine,Hum.rec.anlog) 100 Unit/1 Ml Insuln.pen 64 Unit SQ QHS Analpram Hc 2.5% Cream (Hydrocortisone/Pramoxine) 30 Gm Cream.appl 1 Yessica RC PRN BID PRN Vitamin D3 (Cholecalciferol (Vitamin D3)) 1,000 Unit Tablet 2,000 Unit PO DAILY Miralax (Polyethylene Glycol 3350) 119 Gm Powder 17 Gm PO DAILY Metoprolol Tartrate 25 Mg Tablet 25 Mg PO BID Namenda (Memantine Hcl) 10 Mg Tablet 10 Mg PO BID Levothyroxine Sodium 125 Mcg Tablet 125 Mcg PO DAILY06 Cymbalta (Duloxetine Hcl) 60 Mg Capsule. 60 Mg PO DAILY Aricept (Donepezil Hcl) 10 Mg Tablet 10 Mg PO BID Colace (Docusate Sodium) 100 Mg Capsule 100 Mg PO DAILY Plavix (Clopidogrel Bisulfate) 75 Mg Tablet 75 Mg PO DAILY Centrum Silver Tablet (Multivits-Min/Fa/Lycopene/Lut) 1 Each Tablet 1 Tab PO DAILY Calcium 600 + Vit D 400 Softgl (Calcium Carbonate/Vitamin D3) 1 Each Capsule 1 Cap PO BIDWMEALS Aspir-Low (Aspirin) 81 Mg Tablet. 81 Mg PO DAILY Norvasc (Amlodipine Besylate) 10 Mg Tablet 10 Mg PO DAILY I have reviewed the current psychotropics carefully including drug interactions. Risk benefit ratio favors no change other than as noted in my dictated progress note. 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
[2017-08-26] MEDS: INSULIN DETEMIR 300 UNITS/3 ML INSULN.PEN. SQ SCH (20:18)
[2017-08-27] MEDS: LEVOTHYROXINE 125 MCG TABLET PO SCH (06:42)
[2017-08-27 06:52] VITALS: BP 166/73
[2017-08-27] MEDS: INSULIN ASPART 300 UNITS/3 ML INSULN.PEN SQ SCH ×3 (07:30→16:30)
[2017-08-27] MEDS: CALCIUM CARB/VIT D3 500/200 TABLET PO SCH ×2 (08:18→17:00)
[2017-08-27] MEDS: POLYETHYLENE GLYCOL 3350 17 GM PACKET. PO SCH (08:18)
[2017-08-27] MEDS: ASPIRIN ENTERIC COATED 81 MG TABLET.DR. PO SCH (08:18)
[2017-08-27] MEDS: DULoxetine HCL 60 MG CAPSULE.DR PO SCH (08:18)
[2017-08-27] MEDS: MULTIVITAMIN with MINERAL TABLET. PO SCH (08:19)
[2017-08-27] MEDS: busPIRone 5 MG TABLET. PO SCH ×3 (08:19→17:00)
[2017-08-27] MEDS: DOCUSATE SODIUM 100 MG CAPSULE PO SCH (08:19)
[2017-08-27] MEDS: MEMANTINE 10 MG TABLET. PO SCH ×2 (08:19→20:31)
[2017-08-27] MEDS: CLOPIDOGREL BISULFATE 75 MG TABLET PO SCH (08:19)
[2017-08-27] MEDS: DONEPEZIL HCL 10 MG TABLET PO SCH ×2 (08:19→20:30)
[2017-08-27] MEDS: QUEtiapine 25 MG TABLET. PO SCH ×2 (08:20→13:29)
[2017-08-27] MEDS: CHOLECALCIFEROL (VITAMIN D3) 1,000 UNIT TABLET PO SCH (08:20)
[2017-08-27] MEDS: amLODIPine BESYLATE 10 MG TABLET PO SCH (08:20)
[2017-08-27] MEDS: METOPROLOL TART IMMED RELEASE 25 MG TABLET PO SCH ×2 (08:21→20:31)
[2017-08-27 15:49] VITALS: BP 166/83
--- NOTE | 2017-08-27 18:53 | PDOC ---
Exam Note: Basil Note: Please also refer to the separate dictated note~for this date of service dictated separately.~Patient seen individually. Discussed the patient with Nursing staff reviewed the chart.~Reviewed interim history and current functioning. Reviewed vital signs,~Labs/ Radiology~and current medications noted below. Continue current treatment with the changes noted in the dictated addendum note Assessment: Vital Signs: Vital Signs Date Time Temp Pulse Resp B/P (MAP) Pulse Ox O2 Delivery O2 Flow Rate FiO2 08/27/17 15:49 97.8 84 18 166/83 (110) 96 08/23/17 16:25 Room Air I&O Intake and Output 08/27/17 07:00 Intake Total 1200 ml Balance 1200 ml Intake Oral 1200 ml Labs: Laboratory Tests Test 08/26/17 19:09 08/27/17 07:32 08/27/17 11:29 08/27/17 16:35 Glucose (Fingerstick) 253 mg/dL (70-99) H 61 mg/dL (70-99) L 112 mg/dL (70-99) H 140 mg/dL (70-99) H Current Medications: Meds: Current Medications Al Hydroxide/Mg Hydroxide (Mylanta Plus Xs) 15 ml PRN AFTMEALHC PRN PO DYSPEPSIA; Start 08/18/17 at 03:45 Magnesium Hydroxide (Milk Of Magnesia) 2,400 mg PRN QHS PRN PO CONSTIPATION; Start 08/18/17 at 03:45 Donepezil HCl (Aricept) 10 mg BID PO Last administered on 08/27/17at 08:19; Start 08/18/17 at 09:00 Duloxetine HCl (Cymbalta) 60 mg DAILY PO Last administered on 08/27/17at 08:18; Start 08/18/17 at 09:00 Memantine (Namenda) 10 mg BID PO Last administered on 08/27/17at 08:19; Start at 09:00 Amlodipine Besylate (Norvasc) 10 mg DAILY PO Last administered on 08/27/17at 08: 20; Start 08/18/17 at 09:00 Aspirin (Aspirin Enteric Coated) 81 mg DAILY PO Last administered on 08/27/17at 08:18; Start 08/18/17 at 09:00 Vitamin D (Vitamin D3) 2,000 unit DAILY PO Last administered on 08/27/17 08:20 ; Start 08/18/17 at 09:00 Clopidogrel Bisulfate (Plavix) 75 mg DAILY PO Last administered on 08/27/17 08 :19; Start 08/18/17 at 09:00 Docusate Sodium (Colace) 100 mg DAILY PO Last administered on 08/27/17 08:19; Start 08/18/17 at 09:00 Levothyroxine Sodium (Synthroid) 125 mcg DAILY06 PO Last administered on 06:42; Start 08/18/17 at 06:00 Metoprolol Tartrate (Lopressor) 25 mg BID PO Last administered on 08/27/17 08: 21; Start 08/18/17 at 09:00 Polyethylene Glycol (miraLAX) 17 gm DAILY PO Last administered on 08/27/17 08: 18; Start 08/18/17 at 09:00 Calcium/Vitamin D (Oscal D 500mg/ 200uts) 1 tab BIDWMEALS PO Last administered on 08/27/17 17:00; Start 08/18/17 at 08:00 Hydrocortisone (Proctosol-Hc) 1 yessica PRN BID PRN RC HEMORRHOID PAIN; Start 08/18 at 04:30 Multivitamins/ Calcium (Thera-M Plus) 1 tab DAILY PO Last administered on 08:19; Start 08/18/17 at 09:00 Insulin Aspart (NovoLOG) 0-5 UNITS TIDAC SQ Last administered on 08/26/17 13: 25; Start 08/18/17 at 07:30 Dextrose 12.5 gm PRN Q15MIN PRN IV SEE COMMENTS; Start 08/18/17 at 03:45 Insulin Detemir (Levemir) 64 units QHS SQ Last administered on 08/26/17 20:18 ; Start 08/18/17 at 21:00 Fosfomycin Tromethamine (Monurol) 3 gm 1X ONCE PO Last administered on at 14:32; Start 08/20/17 at 14:00; Stop 08/20/17 at 14:01; Status DC Buspirone HCl (Buspar) 5 mg BID92 PO Last administered on 08/22/17at 17:08; Start 08/21/17 at 09:00; Stop 08/22/17 at 21:00; Status DC Buspirone HCl (Buspar) 5 mg TID@0900,1300,1700 PO Last administered on at 17:00; Start 08/23/17 at 09:00 Quetiapine Fumarate (SEROquel) 12.5 mg BID92 PO Last administered on 08/27/17at 13:29; Start 08/26/17 at 09:00 Active Scripts Active Reported Novolog Flexpen (Insulin Aspart) 100 Unit/1 Ml Insuln.pen 0-10 Unit SQ TIDAC Sliding Scale: Accucheck: 150-200 = 2 units 201-250 = 4 units 251-300 = 6 units 301-400 = 8 units 401-500 = 10 units Call PCP if > than 500 or < 70 Basaglar Kwikpen U-100 (Insulin Glargine,Hum.rec.anlog) 100 Unit/1 Ml Insuln.pen 64 Unit SQ QHS Analpram Hc 2.5% Cream (Hydrocortisone/Pramoxine) 30 Gm Cream.appl 1 Yessica RC PRN BID PRN Vitamin D3 (Cholecalciferol (Vitamin D3)) 1,000 Unit Tablet 2,000 Unit PO DAILY Miralax (Polyethylene Glycol 3350) 119 Gm Powder 17 Gm PO DAILY Metoprolol Tartrate 25 Mg Tablet 25 Mg PO BID Namenda (Memantine Hcl) 10 Mg Tablet 10 Mg PO BID Levothyroxine Sodium 125 Mcg Tablet 125 Mcg PO DAILY06 Cymbalta (Duloxetine Hcl) 60 Mg Capsule. 60 Mg PO DAILY Aricept (Donepezil Hcl) 10 Mg Tablet 10 Mg PO BID Colace (Docusate Sodium) 100 Mg Capsule 100 Mg PO DAILY Plavix (Clopidogrel Bisulfate) 75 Mg Tablet 75 Mg PO DAILY Centrum Silver Tablet (Multivits-Min/Fa/Lycopene/Lut) 1 Each Tablet 1 Tab PO DAILY Calcium 600 + Vit D 400 Softgl (Calcium Carbonate/Vitamin D3) 1 Each Capsule 1 Cap PO BIDWMEALS Aspir-Low (Aspirin) 81 Mg Tablet. 81 Mg PO DAILY Norvasc (Amlodipine Besylate) 10 Mg Tablet 10 Mg PO DAILY I have reviewed the current psychotropics carefully including drug interactions. Risk benefit ratio favors no change other than as noted in my dictated progress note. 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
[2017-08-27] MEDS: INSULIN DETEMIR 300 UNITS/3 ML INSULN.PEN. SQ SCH (20:33)
[2017-08-28] MEDS: LEVOTHYROXINE 125 MCG TABLET PO SCH (05:27)
[2017-08-28 06:34] VITALS: BP 158/85
[2017-08-28] MEDS: INSULIN ASPART 300 UNITS/3 ML INSULN.PEN SQ SCH ×3 (07:30→16:30)
[2017-08-28] MEDS: CHOLECALCIFEROL (VITAMIN D3) 1,000 UNIT TABLET PO SCH (07:54)
[2017-08-28] MEDS: CALCIUM CARB/VIT D3 500/200 TABLET PO SCH ×2 (07:54→17:21)
[2017-08-28] MEDS: DULoxetine HCL 60 MG CAPSULE.DR PO SCH (07:54)
[2017-08-28] MEDS: POLYETHYLENE GLYCOL 3350 17 GM PACKET. PO SCH (07:54)
[2017-08-28] MEDS: METOPROLOL TART IMMED RELEASE 25 MG TABLET PO SCH (07:55)
[2017-08-28] MEDS: CLOPIDOGREL BISULFATE 75 MG TABLET PO SCH (07:55)
[2017-08-28] MEDS: QUEtiapine 25 MG TABLET. PO SCH (07:55)
[2017-08-28] MEDS: DOCUSATE SODIUM 100 MG CAPSULE PO SCH (07:55)
[2017-08-28] MEDS: busPIRone 5 MG TABLET. PO SCH ×3 (07:55→17:21)
[2017-08-28] MEDS: MULTIVITAMIN with MINERAL TABLET. PO SCH (07:56)
[2017-08-28] MEDS: amLODIPine BESYLATE 10 MG TABLET PO SCH (07:56)
[2017-08-28] MEDS: ASPIRIN ENTERIC COATED 81 MG TABLET.DR. PO SCH (07:56)
[2017-08-28] MEDS: DONEPEZIL HCL 10 MG TABLET PO SCH ×2 (07:56→20:37)
[2017-08-28] MEDS: MEMANTINE 10 MG TABLET. PO SCH ×2 (07:56→20:37)
[2017-08-28 08:07] LABS: BASO # 0.1 x10^3/uL (0.0-0.2); BASO % 1 % (0-3); EOS # 0.1 x10^3/uL (0.0-0.7); EOS % 2 % (0-3); HEMATOCRIT 36.8 % (36.0-47.0); HEMOGLOBIN 12.5 g/dL (12.0-15.5); LYMPH # 1.3 x10^3/uL (1.0-4.8); LYMPH % 19 % (24-48); MEAN CORPUSCULAR HEMOGLOBIN 31 pg (25-35); MEAN CORPUSCULAR HGB CONC 34 g/dL (31-37); MEAN CORPUSCULAR VOLUME 91 fL (79-100); MONO # 0.6 x10^3/uL (0.0-1.1); MONO % 8 % (0-9); NEUT # 4.7 x10^3uL (1.8-7.7); NEUT % 69 % (31-73); PLATELET COUNT 181 x10^3/uL (140-400); RED BLOOD COUNT 4.04 x10^6/uL (3.50-5.40); RED CELL DISTRIBUTION WIDTH 14.5 % (11.5-14.5); WHITE BLOOD COUNT 6.8 x10^3/uL (4.0-11.0)
[2017-08-28 08:24] LABS: ALBUMIN 3.3 g/dL (3.4-5.0); ALBUMIN/GLOBULIN RATIO 0.9 (1.0-1.7); CALCIUM 9.3 mg/dL (8.5-10.1); CREATININE 1.4 mg/dL (0.6-1.0); GFR 35.6; POTASSIUM 3.6 mmol/L (3.5-5.1); TOTAL BILIRUBIN 0.3 mg/dL (0.2-1.0); TOTAL PROTEIN 7.1 g/dL (6.4-8.2)
--- NOTE | 2017-08-28 09:57 | PN ---
DATE: 08/26/2017 This late entry, 08/26/2017, covers elements not covered in my initial note of 08/26/2017. SUBJECTIVE: I met with the patient the evening of 08/26/2017. The patient has been somewhat sedated at times, but then was in the day room after lunchtime, needs encouragement to take her meals and medications. REVIEW OF SYSTEMS: No CV, , pulmonary, eye, ENT system symptoms on review. Reliability poor. MENTAL STATUS EXAM: Oriented to herself. Insight, judgment, recent and remote memory, attention, concentration, fund of knowledge poor, consistent with her diagnosis mentioned in my initial note. IMPRESSION: Major neurocognitive disorder, Alzheimer, vascular with delusion, depression, behavioral disturbance. PLAN: Continue current psychotropics mentioned in my initial note. Adjust as clinically indicated. Seroquel was initiated to help with intermittent agitation and hallucinations noted prior to admission and intermittently since admission. HITESH MARIE MD DR: FENG/jamaica JOB#: [id number] / [id number]
[2017-08-28 16:28] VITALS: BP 160/74
--- NOTE | 2017-08-28 19:23 | PDOC ---
Exam Note: Basil Note: Please also refer to the separate dictated note~for this date of service dictated separately.~Patient seen individually. Discussed the patient with Nursing staff reviewed the chart.~Reviewed interim history and current functioning. Reviewed vital signs,~Labs/ Radiology~and current medications noted below. Continue current treatment with the changes noted in the dictated addendum note Assessment: Vital Signs: Vital Signs Date Time Temp Pulse Resp B/P (MAP) Pulse Ox O2 Delivery O2 Flow Rate FiO2 08/28/17 16:28 97.4 80 18 160/74 (102) 95 08/23/17 16:25 Room Air I&O Intake and Output 08/28/17 07:00 Intake Total 1200 ml Balance 1200 ml Intake Oral 1200 ml # Voids 2 Labs: Laboratory Tests Test 08/28/17 07:34 08/28/17 07:43 08/28/17 11:29 08/28/17 16:58 White Blood Count 6.8 x10^3/uL (4.0-11.0) Red Blood Count 4.04 x10^6/uL (3.50-5.40) Hemoglobin 12.5 g/dL (12.0-15.5) Hematocrit 36.8 % (36.0-47.0) Mean Corpuscular Volume 91 fL (79-100) Mean Corpuscular Hemoglobin 31 pg (25-35) Mean Corpuscular Hemoglobin Concent 34 g/dL (31-37) Red Cell Distribution Width 14.5 % (11.5-14.5) Platelet Count 181 x10^3/uL (140-400) Neutrophils (%) (Auto) 69 % (31-73) Lymphocytes (%) (Auto) 19 % (24-48) L Monocytes (%) (Auto) 8 % (0-9) Eosinophils (%) (Auto) 2 % (0-3) Basophils (%) (Auto) 1 % (0-3) Neutrophils # (Auto) 4.7 x10^3uL (1.8-7.7) Lymphocytes # (Auto) 1.3 x10^3/uL (1.0-4.8) Monocytes # (Auto) 0.6 x10^3/uL (0.0-1.1) Eosinophils # (Auto) 0.1 x10^3/uL (0.0-0.7) Basophils # (Auto) 0.1 x10^3/uL (0.0-0.2) Sodium Level 143 mmol/L (136-145) Potassium Level 3.6 mmol/L (3.5-5.1) Chloride Level 106 mmol/L (98-107) Carbon Dioxide Level 30 mmol/L (21-32) Anion Gap 7 (6-14) Blood Urea Nitrogen 30 mg/dL (7-20) H Creatinine 1.4 mg/dL (0.6-1.0) H Estimated GFR (Cockcroft-Gault) 35.6 BUN/Creatinine Ratio 21 (6-20) H Glucose Level 113 mg/dL (70-99) H Calcium Level 9.3 mg/dL (8.5-10.1) Magnesium Level 2.0 mg/dL (1.8-2.4) Total Bilirubin 0.3 mg/dL (0.2-1.0) Aspartate Amino Transferase (AST) 17 U/L (15-37) Alanine Aminotransferase (ALT) 23 U/L (14-59) Alkaline Phosphatase 84 U/L (46-116) Total Protein 7.1 g/dL (6.4-8.2) Albumin 3.3 g/dL (3.4-5.0) L Albumin/Globulin Ratio 0.9 (1.0-1.7) L Glucose (Fingerstick) 106 mg/dL (70-99) H 188 mg/dL (70-99) H 150 mg/dL (70-99) H Test 08/28/17 19:12 Glucose (Fingerstick) 266 mg/dL (70-99) H Current Medications: Meds: Current Medications Al Hydroxide/Mg Hydroxide (Mylanta Plus Xs) 15 ml PRN AFTMEALHC PRN PO DYSPEPSIA; Start 08/18/17 at 03:45 Magnesium Hydroxide (Milk Of Magnesia) 2,400 mg PRN QHS PRN PO CONSTIPATION; Start 08/18/17 at 03:45 Donepezil HCl (Aricept) 10 mg BID PO Last administered on 08/28/17at 07:56; Start 08/18/17 at 09:00 Duloxetine HCl (Cymbalta) 60 mg DAILY PO Last administered on 08/28/17at 07:54; Start 08/18/17 at 09:00 Memantine (Namenda) 10 mg BID PO Last administered on 08/28/17 07:56; Start at 09:00 Amlodipine Besylate (Norvasc) 10 mg DAILY PO Last administered on 08/28/17 07: 56; Start 08/18/17 at 09:00 Aspirin (Aspirin Enteric Coated) 81 mg DAILY PO Last administered on 08/28/17 07:56; Start 08/18/17 at 09:00 Vitamin D (Vitamin D3) 2,000 unit DAILY PO Last administered on 08/28/17 07:54 ; Start 08/18/17 at 09:00 Clopidogrel Bisulfate (Plavix) 75 mg DAILY PO Last administered on 08/28/17 07 :55; Start 08/18/17 at 09:00 Docusate Sodium (Colace) 100 mg DAILY PO Last administered on 08/28/17 07:55; Start 08/18/17 at 09:00 Levothyroxine Sodium (Synthroid) 125 mcg DAILY06 PO Last administered on 05:27; Start 08/18/17 at 06:00 Metoprolol Tartrate (Lopressor) 25 mg BID PO Last administered on 08/28/17 07: 55; Start 08/18/17 at 09:00; Stop 08/28/17 at 18:18; Status DC Polyethylene Glycol (miraLAX) 17 gm DAILY PO Last administered on 08/28/17 07: 54; Start 08/18/17 at 09:00 Calcium/Vitamin D (Oscal D 500mg/ 200uts) 1 tab BIDWMEALS PO Last administered on 08/28/17 17:21; Start 08/18/17 at 08:00 Hydrocortisone (Proctosol-Hc) 1 yessica PRN BID PRN RC HEMORRHOID PAIN; Start 08/18 at 04:30 Multivitamins/ Calcium (Thera-M Plus) 1 tab DAILY PO Last administered on 07:56; Start 08/18/17 at 09:00 Insulin Aspart (NovoLOG) 0-5 UNITS TIDAC SQ Last administered on 08/28/17at 11: 41; Start 08/18/17 at 07:30 Dextrose 12.5 gm PRN Q15MIN PRN IV SEE COMMENTS; Start 08/18/17 at 03:45 Insulin Detemir (Levemir) 64 units QHS SQ Last administered on 08/27/17at 20:33 ; Start 08/18/17 at 21:00 Fosfomycin Tromethamine (Monurol) 3 gm 1X ONCE PO Last administered on at 14:32; Start 08/20/17 at 14:00; Stop 08/20/17 at 14:01; Status DC Buspirone HCl (Buspar) 5 mg BID92 PO Last administered on 08/22/17at 17:08; Start 08/21/17 at 09:00; Stop 08/22/17 at 21:00; Status DC Buspirone HCl (Buspar) 5 mg TID@0900,1300,1700 PO Last administered on at 17:21; Start 08/23/17 at 09:00 Quetiapine Fumarate (SEROquel) 12.5 mg BID92 PO Last administered on 08/28/17at 07:55; Start 08/26/17 at 09:00; Stop 08/28/17 at 11:54; Status DC Metoprolol Tartrate (Lopressor) 50 mg BID PO ; Start 08/28/17 at 21:00 Active Scripts Active Reported Novolog Flexpen (Insulin Aspart) 100 Unit/1 Ml Insuln.pen 0-10 Unit SQ TIDAC Sliding Scale: Accucheck: 150-200 = 2 units 201-250 = 4 units 251-300 = 6 units 301-400 = 8 units 401-500 = 10 units Call PCP if > than 500 or < 70 Basaglar Kwikpen U-100 (Insulin Glargine,Hum.rec.anlog) 100 Unit/1 Ml Insuln.pen 64 Unit SQ QHS Analpram Hc 2.5% Cream (Hydrocortisone/Pramoxine) 30 Gm Cream.appl 1 Yessica RC PRN BID PRN Vitamin D3 (Cholecalciferol (Vitamin D3)) 1,000 Unit Tablet 2,000 Unit PO DAILY Miralax (Polyethylene Glycol 3350) 119 Gm Powder 17 Gm PO DAILY Metoprolol Tartrate 25 Mg Tablet 25 Mg PO BID Namenda (Memantine Hcl) 10 Mg Tablet 10 Mg PO BID Levothyroxine Sodium 125 Mcg Tablet 125 Mcg PO DAILY06 Cymbalta (Duloxetine Hcl) 60 Mg Capsule. 60 Mg PO DAILY Aricept (Donepezil Hcl) 10 Mg Tablet 10 Mg PO BID Colace (Docusate Sodium) 100 Mg Capsule 100 Mg PO DAILY Plavix (Clopidogrel Bisulfate) 75 Mg Tablet 75 Mg PO DAILY Centrum Silver Tablet (Multivits-Min/Fa/Lycopene/Lut) 1 Each Tablet 1 Tab PO DAILY Calcium 600 + Vit D 400 Softgl (Calcium Carbonate/Vitamin D3) 1 Each Capsule 1 Cap PO BIDWMEALS Aspir-Low (Aspirin) 81 Mg Tablet. 81 Mg PO DAILY Norvasc (Amlodipine Besylate) 10 Mg Tablet 10 Mg PO DAILY I have reviewed the current psychotropics carefully including drug interactions. Risk benefit ratio favors no change other than as noted in my dictated progress note. 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
[2017-08-28] MEDS: METOPROLOL TART IMMED RELEASE 50 MG TABLET PO SCH (20:40)
[2017-08-28] MEDS: INSULIN DETEMIR 300 UNITS/3 ML INSULN.PEN. SQ SCH (20:43)
[2017-08-29] MEDS: LEVOTHYROXINE 125 MCG TABLET PO SCH (05:09)
[2017-08-29 06:09] VITALS: BP 186/86
[2017-08-29] MEDS: INSULIN ASPART 300 UNITS/3 ML INSULN.PEN SQ SCH ×3 (07:30→16:30)
[2017-08-29] MEDS: busPIRone 5 MG TABLET. PO SCH ×3 (08:25→17:05)
[2017-08-29] MEDS: DULoxetine HCL 60 MG CAPSULE.DR PO SCH (08:25)
[2017-08-29] MEDS: DONEPEZIL HCL 10 MG TABLET PO SCH ×2 (08:25→20:13)
[2017-08-29] MEDS: CALCIUM CARB/VIT D3 500/200 TABLET PO SCH ×2 (08:25→17:05)
[2017-08-29] MEDS: POLYETHYLENE GLYCOL 3350 17 GM PACKET. PO SCH (08:26)
[2017-08-29] MEDS: MEMANTINE 10 MG TABLET. PO SCH ×2 (08:26→20:13)
[2017-08-29] MEDS: amLODIPine BESYLATE 10 MG TABLET PO SCH (08:26)
[2017-08-29] MEDS: MULTIVITAMIN with MINERAL TABLET. PO SCH (08:26)
[2017-08-29] MEDS: ASPIRIN ENTERIC COATED 81 MG TABLET.DR. PO SCH (08:26)
[2017-08-29] MEDS: DOCUSATE SODIUM 100 MG CAPSULE PO SCH (08:26)
[2017-08-29] MEDS: CHOLECALCIFEROL (VITAMIN D3) 1,000 UNIT TABLET PO SCH (08:26)
[2017-08-29] MEDS: CLOPIDOGREL BISULFATE 75 MG TABLET PO SCH (08:26)
[2017-08-29] MEDS: METOPROLOL TART IMMED RELEASE 50 MG TABLET PO SCH ×2 (08:27→20:12)
--- NOTE | 2017-08-29 10:40 | PN ---
DATE: 08/27/2017 PSYCHIATRIC PROGRESS NOTE This is a late entry 08/27/2017, covers elements not covered in my initial note 08/27/2017. SUBJECTIVE: I met with the patient the evening of 08/27/2017. The patient remains somewhat withdrawn, sleeping a lot, spends much time in her room, confused, slept 7-1/4 hours previous evening. REVIEW OF SYSTEMS: No CV, , pulmonary, eye, ENT system symptoms on review. Reliability poor. MENTAL STATUS EXAM: Oriented to herself. Insight, judgment, recent and remote memory, attention, concentration, fund of knowledge poor, consistent with her diagnoses mentioned in my initial note. IMPRESSION: Major neurocognitive disorder, Alzheimer, vascular with depression, delusion, behavioral disturbance. Rest unchanged. PLAN: I have received a message via Jaelyn, social media senior associate from the patient's daughter that she would prefer the patient not to be on Seroquel and we will stop it. Maintain Namenda, Aricept, Cymbalta, BuSpar at current dosage as mentioned in my initial note. If agitation resurfaces we may increase BuSpar, consider Depakote if mood lability is significant. MAN Koko MARIE MD DR: FENG/jamaica JOB#: [id number] / [id number]
[2017-08-29 15:53] VITALS: BP 165/83
--- NOTE | 2017-08-29 19:54 | PDOC ---
Exam Note: Basil Note: Please also refer to the separate dictated note~for this date of service dictated separately.~Patient seen individually. Discussed the patient with Nursing staff reviewed the chart.~Reviewed interim history and current functioning. Reviewed vital signs,~Labs/ Radiology~and current medications noted below. Continue current treatment with the changes noted in the dictated addendum note Assessment: Vital Signs: Vital Signs Date Time Temp Pulse Resp B/P (MAP) Pulse Ox O2 Delivery O2 Flow Rate FiO2 08/29/17 15:53 97.4 69 16 165/83 (110) 96 08/23/17 16:25 Room Air I&O Intake and Output 08/29/17 07:00 Intake Total 1200 ml Balance 1200 ml Intake Oral 1200 ml # Voids 2 # Bowel Movements 2 Labs: Laboratory Tests Test 08/29/17 08:10 08/29/17 12:18 08/29/17 17:02 08/29/17 19:12 Glucose (Fingerstick) 104 mg/dL (70-99) H 202 mg/dL (70-99) H 139 mg/dL (70-99) H 301 mg/dL (70-99) H Current Medications: Meds: Current Medications Al Hydroxide/Mg Hydroxide (Mylanta Plus Xs) 15 ml PRN AFTMEALHC PRN PO DYSPEPSIA; Start 08/18/17 at 03:45 Magnesium Hydroxide (Milk Of Magnesia) 2,400 mg PRN QHS PRN PO CONSTIPATION; Start 08/18/17 at 03:45 Donepezil HCl (Aricept) 10 mg BID PO Last administered on 08/29/17at 08:25; Start 08/18/17 at 09:00 Duloxetine HCl (Cymbalta) 60 mg DAILY PO Last administered on 08/29/17at 08:25; Start 08/18/17 at 09:00 Memantine (Namenda) 10 mg BID PO Last administered on 08/29/17at 08:26; Start at 09:00 Amlodipine Besylate (Norvasc) 10 mg DAILY PO Last administered on 08/29/17at 08: 26; Start 08/18/17 at 09:00 Aspirin (Aspirin Enteric Coated) 81 mg DAILY PO Last administered on 08/29/17at 08:26; Start 08/18/17 at 09:00 Vitamin D (Vitamin D3) 2,000 unit DAILY PO Last administered on 08/29/17 08:26 ; Start 08/18/17 at 09:00 Clopidogrel Bisulfate (Plavix) 75 mg DAILY PO Last administered on 08/29/17 08 :26; Start 08/18/17 at 09:00 Docusate Sodium (Colace) 100 mg DAILY PO Last administered on 08/29/17 08:26; Start 08/18/17 at 09:00 Levothyroxine Sodium (Synthroid) 125 mcg DAILY06 PO Last administered on 05:09; Start 08/18/17 at 06:00 Metoprolol Tartrate (Lopressor) 25 mg BID PO Last administered on 08/28/17 07: 55; Start 08/18/17 at 09:00; Stop 08/28/17 at 18:18; Status DC Polyethylene Glycol (miraLAX) 17 gm DAILY PO Last administered on 08/29/17 08: 26; Start 08/18/17 at 09:00 Calcium/Vitamin D (Oscal D 500mg/ 200uts) 1 tab BIDWMEALS PO Last administered on 08/29/17 17:05; Start 08/18/17 at 08:00 Hydrocortisone (Proctosol-Hc) 1 yessica PRN BID PRN RC HEMORRHOID PAIN; Start 08/18 at 04:30 Multivitamins/ Calcium (Thera-M Plus) 1 tab DAILY PO Last administered on 08:26; Start 08/18/17 at 09:00 Insulin Aspart (NovoLOG) 0-5 UNITS TIDAC SQ Last administered on 08/29/17at 12: 39; Start 08/18/17 at 07:30 Dextrose 12.5 gm PRN Q15MIN PRN IV SEE COMMENTS; Start 08/18/17 at 03:45 Insulin Detemir (Levemir) 64 units QHS SQ Last administered on 08/28/17at 20:43 ; Start 08/18/17 at 21:00 Fosfomycin Tromethamine (Monurol) 3 gm 1X ONCE PO Last administered on at 14:32; Start 08/20/17 at 14:00; Stop 08/20/17 at 14:01; Status DC Buspirone HCl (Buspar) 5 mg BID92 PO Last administered on 08/22/17at 17:08; Start 08/21/17 at 09:00; Stop 08/22/17 at 21:00; Status DC Buspirone HCl (Buspar) 5 mg TID@0900,1300,1700 PO Last administered on at 17:05; Start 08/23/17 at 09:00 Quetiapine Fumarate (SEROquel) 12.5 mg BID92 PO Last administered on 08/28/17at 07:55; Start 08/26/17 at 09:00; Stop 08/28/17 at 11:54; Status DC Metoprolol Tartrate (Lopressor) 50 mg BID PO Last administered on 08/29/17at 08: 27; Start 08/28/17 at 21:00 Mirtazapine (Remeron) 7.5 mg QHS PO ; Start 08/29/17 at 21:00 Risperidone (RisperDAL) 0.125 mg QHS PO ; Start 08/29/17 at 21:00 Active Scripts Active Reported Novolog Flexpen (Insulin Aspart) 100 Unit/1 Ml Insuln.pen 0-10 Unit SQ TIDAC Sliding Scale: Accucheck: 150-200 = 2 units 201-250 = 4 units 251-300 = 6 units 301-400 = 8 units 401-500 = 10 units Call PCP if > than 500 or < 70 Basaglar Kwikpen U-100 (Insulin Glargine,Hum.rec.anlog) 100 Unit/1 Ml Insuln.pen 64 Unit SQ QHS Analpram Hc 2.5% Cream (Hydrocortisone/Pramoxine) 30 Gm Cream.appl 1 Yessica RC PRN BID PRN Vitamin D3 (Cholecalciferol (Vitamin D3)) 1,000 Unit Tablet 2,000 Unit PO DAILY Miralax (Polyethylene Glycol 3350) 119 Gm Powder 17 Gm PO DAILY Metoprolol Tartrate 25 Mg Tablet 25 Mg PO BID Namenda (Memantine Hcl) 10 Mg Tablet 10 Mg PO BID Levothyroxine Sodium 125 Mcg Tablet 125 Mcg PO DAILY06 Cymbalta (Duloxetine Hcl) 60 Mg Capsule.dr 60 Mg PO DAILY Aricept (Donepezil Hcl) 10 Mg Tablet 10 Mg PO BID Colace (Docusate Sodium) 100 Mg Capsule 100 Mg PO DAILY Plavix (Clopidogrel Bisulfate) 75 Mg Tablet 75 Mg PO DAILY Centrum Silver Tablet (Multivits-Min/Fa/Lycopene/Lut) 1 Each Tablet 1 Tab PO DAILY Calcium 600 + Vit D 400 Softgl (Calcium Carbonate/Vitamin D3) 1 Each Capsule 1 Cap PO BIDWMEALS Aspir-Low (Aspirin) 81 Mg Tablet. 81 Mg PO DAILY Norvasc (Amlodipine Besylate) 10 Mg Tablet 10 Mg PO DAILY I have reviewed the current psychotropics carefully including drug interactions. Risk benefit ratio favors no change other than as noted in my dictated progress note. Diagnosis: Problems: (1) Anxiety disorder (2) Depression (3) Impulse control disorder (4) Congenital nevus of labia majora (5) Vascular dementia with behavior disturbance (6) Behavior problem HITESH MARIE MD Aug 29, 2017 19:54
[2017-08-29] MEDS: INSULIN DETEMIR 300 UNITS/3 ML INSULN.PEN. SQ SCH (20:17)
[2017-08-29] MEDS: risperiDONE 0.25 MG TABLET. PO SCH (20:18)
[2017-08-29] MEDS: MIRTAZAPINE 7.5 MG TABLET. PO SCH (20:18)
[2017-08-30 05:37] VITALS: BP 137/55
[2017-08-30] MEDS: LEVOTHYROXINE 125 MCG TABLET PO SCH (05:39)
--- NOTE | 2017-08-30 07:19 | PN ---
DATE: 08/28/2017 This is a late entry for 08/28/2017 and covers elements not covered in my initial note of 08/28/2017. This is a late entry for 08/28/2017 and covers elements not covered in my initial note of 08/28/2017. I met with the patient in the evening of 08/28/2017. The patient slept 6-1/4 hours previous evening, was wandering into other patient's room the previous night, yelling at times because the other patients were yelling out and she was getting agitated. She did redirect, somewhat drowsy in the morning. Per nursing report, she has been delusional, believing her granddaughter is in the hospital and she has come here to visit the granddaughter. The daughter does not want her on Seroquel and we discontinued it, but she did have prominent psychotic symptoms prior to admission. If the daughter agrees, we may start her on low dose Risperdal or at least increase the BuSpar to help with anxiety, which might help some of the psychotic symptoms that are being exacerbated by the anxiety. REVIEW OF SYSTEMS: No CV, , pulmonary, eye, ENT system symptoms on review. Reliability poor. MENTAL STATUS EXAM: Oriented to herself. Insight, judgment, recent and remote memory, attention, concentration, fund of knowledge poor, consistent with her diagnosis. LABORATORY DATA: Reviewed. IMPRESSION: Major neurocognitive disorder, Alzheimer, vascular with depression, delusion, behavioral disturbance. Rest unchanged. PLAN: Continue psychotropics as mentioned in my initial note. Adjust further as clinically indicated. HITESH MARIE MD DR: FENG/jamaica JOB#: [id number] / [id number]
[2017-08-30] MEDS: INSULIN ASPART 300 UNITS/3 ML INSULN.PEN SQ SCH ×3 (07:30→16:51)
[2017-08-30 08:00] VITALS: BP 105/76
[2017-08-30] MEDS: METOPROLOL TART IMMED RELEASE 50 MG TABLET PO SCH ×2 (09:00→21:03)
[2017-08-30] MEDS: CLOPIDOGREL BISULFATE 75 MG TABLET PO SCH (09:28)
[2017-08-30] MEDS: MEMANTINE 10 MG TABLET. PO SCH ×2 (09:28→21:02)
[2017-08-30] MEDS: DOCUSATE SODIUM 100 MG CAPSULE PO SCH (09:28)
[2017-08-30] MEDS: ASPIRIN ENTERIC COATED 81 MG TABLET.DR. PO SCH (09:29)
[2017-08-30] MEDS: DONEPEZIL HCL 10 MG TABLET PO SCH ×2 (09:29→21:03)
[2017-08-30] MEDS: DULoxetine HCL 60 MG CAPSULE.DR PO SCH (09:29)
[2017-08-30] MEDS: POLYETHYLENE GLYCOL 3350 17 GM PACKET. PO SCH (09:29)
[2017-08-30] MEDS: CHOLECALCIFEROL (VITAMIN D3) 1,000 UNIT TABLET PO SCH (09:29)
[2017-08-30] MEDS: busPIRone 5 MG TABLET. PO SCH ×3 (09:29→16:50)
[2017-08-30] MEDS: MULTIVITAMIN with MINERAL TABLET. PO SCH (09:29)
[2017-08-30] MEDS: amLODIPine BESYLATE 10 MG TABLET PO SCH (09:29)
[2017-08-30] MEDS: CALCIUM CARB/VIT D3 500/200 TABLET PO SCH ×2 (09:29→16:50)
[2017-08-30 15:42] VITALS: BP 139/70
--- NOTE | 2017-08-30 20:06 | PDOC ---
Exam Note: Basil Note: Please also refer to the separate dictated note~for this date of service dictated separately.~Patient seen individually. Discussed the patient with Nursing staff reviewed the chart.~Reviewed interim history and current functioning. Reviewed vital signs,~Labs/ Radiology~and current medications noted below. Continue current treatment with the changes noted in the dictated addendum note Assessment: Vital Signs: Vital Signs Date Time Temp Pulse Resp B/P (MAP) Pulse Ox O2 Delivery O2 Flow Rate FiO2 08/30/17 15:42 97.1 65 16 139/70 (93) 97 Room Air I&O Intake and Output 08/30/17 07:00 Intake Total 960 ml Balance 960 ml Intake Oral 960 ml Labs: Laboratory Tests Test 08/30/17 07:18 08/30/17 11:31 08/30/17 16:31 08/30/17 19:03 Glucose (Fingerstick) 152 mg/dL (70-99) H 74 mg/dL (70-99) 166 mg/dL (70-99) H 325 mg/dL (70-99) H Current Medications: Meds: Current Medications Al Hydroxide/Mg Hydroxide (Mylanta Plus Xs) 15 ml PRN AFTMEALHC PRN PO DYSPEPSIA; Start 08/18/17 at 03:45 Magnesium Hydroxide (Milk Of Magnesia) 2,400 mg PRN QHS PRN PO CONSTIPATION; Start 08/18/17 at 03:45 Donepezil HCl (Aricept) 10 mg BID PO Last administered on 08/30/17 09:29; Start 08/18/17 at 09:00 Duloxetine HCl (Cymbalta) 60 mg DAILY PO Last administered on 08/30/17 09:29; Start 08/18/17 at 09:00 Memantine (Namenda) 10 mg BID PO Last administered on 08/30/17 09:28; Start at 09:00 Amlodipine Besylate (Norvasc) 10 mg DAILY PO Last administered on 08/30/17 09: 29; Start 08/18/17 at 09:00 Aspirin (Aspirin Enteric Coated) 81 mg DAILY PO Last administered on 08/30/17 09:29; Start 08/18/17 at 09:00 Vitamin D (Vitamin D3) 2,000 unit DAILY PO Last administered on 08/30/17 09:29 ; Start 08/18/17 at 09:00 Clopidogrel Bisulfate (Plavix) 75 mg DAILY PO Last administered on 08/30/17 09: 28; Start 08/18/17 at 09:00 Docusate Sodium (Colace) 100 mg DAILY PO Last administered on 08/30/17 09:28; Start 08/18/17 at 09:00 Levothyroxine Sodium (Synthroid) 125 mcg DAILY06 PO Last administered on 05:39; Start 08/18/17 at 06:00 Metoprolol Tartrate (Lopressor) 25 mg BID PO Last administered on 08/28/17 07: 55; Start 08/18/17 at 09:00; Stop 08/28/17 at 18:18; Status DC Polyethylene Glycol (miraLAX) 17 gm DAILY PO Last administered on 08/30/17 09: 29; Start 08/18/17 at 09:00 Calcium/Vitamin D (Oscal D 500mg/ 200uts) 1 tab BIDWMEALS PO Last administered on 08/30/17 16:50; Start 08/18/17 at 08:00 Hydrocortisone (Proctosol-Hc) 1 yessica PRN BID PRN RC HEMORRHOID PAIN; Start 08/18 at 04:30 Multivitamins/ Calcium (Thera-M Plus) 1 tab DAILY PO Last administered on 09:29; Start 08/18/17 at 09:00 Insulin Aspart (NovoLOG) 0-5 UNITS TIDAC SQ Last administered on 08/30/17 16:51 ; Start 08/18/17 at 07:30 Dextrose 12.5 gm PRN Q15MIN PRN IV SEE COMMENTS; Start 08/18/17 at 03:45 Insulin Detemir (Levemir) 64 units QHS SQ Last administered on 08/29/17 20:17 ; Start 08/18/17 at 21:00 Fosfomycin Tromethamine (Monurol) 3 gm 1X ONCE PO Last administered on 14:32; Start 08/20/17 at 14:00; Stop 08/20/17 at 14:01; Status DC Buspirone HCl (Buspar) 5 mg BID92 PO Last administered on 2/21/18at 17:08; Start 08/21/17 at 09:00; Stop 08/22/17 at 21:00; Status DC Buspirone HCl (Buspar) 5 mg TID@0900,1300,1700 PO Last administered on at 16:50; Start 08/23/17 at 09:00 Quetiapine Fumarate (SEROquel) 12.5 mg BID92 PO Last administered on 08/28/17at 07:55; Start 08/26/17 at 09:00; Stop 08/28/17 at 11:54; Status DC Metoprolol Tartrate (Lopressor) 50 mg BID PO Last administered on 08/30/17at 09: 00; Start 08/28/17 at 21:00 Mirtazapine (Remeron) 7.5 mg QHS PO Last administered on 08/29/17at 20:18; Start 08/29/17 at 21:00 Risperidone (RisperDAL) 0.125 mg QHS PO Last administered on 08/29/17at 20:18; Start 08/29/17 at 21:00 Active Scripts Active Reported Novolog Flexpen (Insulin Aspart) 100 Unit/1 Ml Insuln.pen 0-10 Unit SQ TIDAC Sliding Scale: Accucheck: 150-200 = 2 units 201-250 = 4 units 251-300 = 6 units 301-400 = 8 units 401-500 = 10 units Call PCP if > than 500 or < 70 Basaglar Kwikpen U-100 (Insulin Glargine,Hum.rec.anlog) 100 Unit/1 Ml Insuln.pen 64 Unit SQ QHS Analpram Hc 2.5% Cream (Hydrocortisone/Pramoxine) 30 Gm Cream.appl 1 Yessica RC PRN BID PRN Vitamin D3 (Cholecalciferol (Vitamin D3)) 1,000 Unit Tablet 2,000 Unit PO DAILY Miralax (Polyethylene Glycol 3350) 119 Gm Powder 17 Gm PO DAILY Metoprolol Tartrate 25 Mg Tablet 25 Mg PO BID Namenda (Memantine Hcl) 10 Mg Tablet 10 Mg PO BID Levothyroxine Sodium 125 Mcg Tablet 125 Mcg PO DAILY06 Cymbalta (Duloxetine Hcl) 60 Mg Capsule.dr 60 Mg PO DAILY Aricept (Donepezil Hcl) 10 Mg Tablet 10 Mg PO BID Colace (Docusate Sodium) 100 Mg Capsule 100 Mg PO DAILY Plavix (Clopidogrel Bisulfate) 75 Mg Tablet 75 Mg PO DAILY Centrum Silver Tablet (Multivits-Min/Fa/Lycopene/Lut) 1 Each Tablet 1 Tab PO DAILY Calcium 600 + Vit D 400 Softgl (Calcium Carbonate/Vitamin D3) 1 Each Capsule 1 Cap PO BIDWMEALS Aspir-Low (Aspirin) 81 Mg Tablet. 81 Mg PO DAILY Norvasc (Amlodipine Besylate) 10 Mg Tablet 10 Mg PO DAILY I have reviewed the current psychotropics carefully including drug interactions. Risk benefit ratio favors no change other than as noted in my dictated progress note. Diagnosis: Problems: (1) Anxiety disorder (2) Depression (3) Impulse control disorder (4) Congenital nevus of labia majora (5) Vascular dementia with behavior disturbance (6) Behavior problem HITESH MARIE MD Aug 30, 2017 20:06
[2017-08-30] MEDS: risperiDONE 0.25 MG TABLET. PO SCH (21:02)
[2017-08-30] MEDS: MIRTAZAPINE 7.5 MG TABLET. PO SCH (21:03)
[2017-08-30] MEDS: INSULIN DETEMIR 300 UNITS/3 ML INSULN.PEN. SQ SCH (21:06)
[2017-08-31] MEDS: LEVOTHYROXINE 125 MCG TABLET PO SCH (06:07)
[2017-08-31 06:37] VITALS: BP 170/73
[2017-08-31] MEDS: INSULIN ASPART 300 UNITS/3 ML INSULN.PEN SQ SCH ×3 (07:51→17:36)
[2017-08-31] MEDS: amLODIPine BESYLATE 10 MG TABLET PO SCH (08:36)
[2017-08-31] MEDS: CLOPIDOGREL BISULFATE 75 MG TABLET PO SCH (08:36)
[2017-08-31] MEDS: DULoxetine HCL 60 MG CAPSULE.DR PO SCH (08:36)
[2017-08-31] MEDS: MULTIVITAMIN with MINERAL TABLET. PO SCH (08:36)
[2017-08-31] MEDS: DOCUSATE SODIUM 100 MG CAPSULE PO SCH (08:36)
[2017-08-31] MEDS: ASPIRIN ENTERIC COATED 81 MG TABLET.DR. PO SCH (08:36)
[2017-08-31] MEDS: busPIRone 5 MG TABLET. PO SCH ×3 (08:36→17:36)
[2017-08-31] MEDS: CHOLECALCIFEROL (VITAMIN D3) 1,000 UNIT TABLET PO SCH (08:36)
[2017-08-31] MEDS: DONEPEZIL HCL 10 MG TABLET PO SCH ×2 (08:36→20:11)
[2017-08-31] MEDS: CALCIUM CARB/VIT D3 500/200 TABLET PO SCH ×2 (08:36→17:36)
[2017-08-31] MEDS: MEMANTINE 10 MG TABLET. PO SCH ×2 (08:37→20:11)
[2017-08-31] MEDS: METOPROLOL TART IMMED RELEASE 50 MG TABLET PO SCH ×2 (08:37→20:11)
[2017-08-31] MEDS: POLYETHYLENE GLYCOL 3350 17 GM PACKET. PO SCH (08:37)
[2017-08-31 16:17] VITALS: BP 140/70
[2017-08-31] MEDS: risperiDONE 0.25 MG TABLET. PO SCH (20:11)
[2017-08-31] MEDS: MIRTAZAPINE 7.5 MG TABLET. PO SCH (20:11)
[2017-08-31] MEDS: INSULIN DETEMIR 300 UNITS/3 ML INSULN.PEN. SQ SCH (20:13)
--- NOTE | 2017-08-31 22:18 | PN ---
DATE: 08/29/2017 This is a late entry, 08/29/2017, covers the elements not covered in my initial note, 08/29/2017. SUBJECTIVE: I met with the patient in the evening of 08/29/2017. Overall, the patient had a good night the previous evening, but slept only 3-3/4 hours, had remains confused. REVIEW OF SYSTEMS: No CV, , pulmonary, eye, ENT system symptoms on review. Reliability poor. MENTAL STATUS EXAM: Oriented to herself. Insight, judgment, recent and remote memory, attention, concentration, fund of knowledge poor, consistent with her diagnosis mentioned in my initial note. IMPRESSION: Major neurocognitive disorder, Alzheimer, vascular with delusion, depression, behavioral disturbance. Rest unchanged. PLAN: Continue psychotropics as mentioned in my initial note. We will start Risperdal 0.125 mg as needed at bedtime. With consent from daughter due to his psychotic symptoms since we were not able to use the Seroquel, start Remeron 7.5 mg as needed at bedtime, rest unchanged. MAN Koko MARIE MD DR: FENG/j[place]ica JOB#: [id number] / [id number]
--- NOTE | 2017-08-31 22:23 | PDOC ---
Exam Note: Basil Note: Please also refer to the separate dictated note~for this date of service dictated separately.~Patient seen individually. Discussed the patient with Nursing staff reviewed the chart.~Reviewed interim history and current functioning. Reviewed vital signs,~Labs/ Radiology~and current medications noted below. Continue current treatment with the changes noted in the dictated addendum note Assessment: Vital Signs: Vital Signs Date Time Temp Pulse Resp B/P (MAP) Pulse Ox O2 Delivery O2 Flow Rate FiO2 08/31/17 20:11 77 140/70 08/31/17 16:17 99.0 98 Room Air 08/31/17 06:37 16 I&O Intake and Output 08/31/17 07:00 Intake Total 900 ml Balance 900 ml Intake Oral 900 ml Labs: Laboratory Tests Test 08/31/17 07:05 08/31/17 11:32 08/31/17 16:32 08/31/17 19:00 Glucose (Fingerstick) 266 mg/dL (70-99) H 323 mg/dL (70-99) H 355 mg/dL (70-99) H 427 mg/dL (70-99) H Current Medications: Meds: Current Medications Al Hydroxide/Mg Hydroxide (Mylanta Plus Xs) 15 ml PRN AFTMEALHC PRN PO DYSPEPSIA; Start 08/18/17 at 03:45 Magnesium Hydroxide (Milk Of Magnesia) 2,400 mg PRN QHS PRN PO CONSTIPATION; Start 08/18/17 at 03:45 Donepezil HCl (Aricept) 10 mg BID PO Last administered on 08/31/17 20:11; Start 08/18/17 at 09:00 Duloxetine HCl (Cymbalta) 60 mg DAILY PO Last administered on 08/31/17 08:36; Start 08/18/17 at 09:00 Memantine (Namenda) 10 mg BID PO Last administered on 08/31/17 20:11; Start at 09:00 Amlodipine Besylate (Norvasc) 10 mg DAILY PO Last administered on 08/31/17 08: 36; Start 08/18/17 at 09:00 Aspirin (Aspirin Enteric Coated) 81 mg DAILY PO Last administered on 08/31/17 08:36; Start 08/18/17 at 09:00 Vitamin D (Vitamin D3) 2,000 unit DAILY PO Last administered on 08/31/17 08:36 ; Start 08/18/17 at 09:00 Clopidogrel Bisulfate (Plavix) 75 mg DAILY PO Last administered on 08/31/17 08: 36; Start 08/18/17 at 09:00 Docusate Sodium (Colace) 100 mg DAILY PO Last administered on 08/31/17 08:36; Start 08/18/17 at 09:00 Levothyroxine Sodium (Synthroid) 125 mcg DAILY06 PO Last administered on 06:07; Start 08/18/17 at 06:00 Metoprolol Tartrate (Lopressor) 25 mg BID PO Last administered on 08/28/17 07: 55; Start 08/18/17 at 09:00; Stop 08/28/17 at 18:18; Status DC Polyethylene Glycol (miraLAX) 17 gm DAILY PO Last administered on 08/31/17 08: 37; Start 08/18/17 at 09:00 Calcium/Vitamin D (Oscal D 500mg/ 200uts) 1 tab BIDWMEALS PO Last administered on 08/31/17 17:36; Start 08/18/17 at 08:00 Hydrocortisone (Proctosol-Hc) 1 yessica PRN BID PRN RC HEMORRHOID PAIN; Start 08/18 at 04:30 Multivitamins/ Calcium (Thera-M Plus) 1 tab DAILY PO Last administered on 08:36; Start 08/18/17 at 09:00 Insulin Aspart (NovoLOG) 0-5 UNITS TIDAC SQ Last administered on 08/31/17 17:36 ; Start 08/18/17 at 07:30 Dextrose 12.5 gm PRN Q15MIN PRN IV SEE COMMENTS; Start 08/18/17 at 03:45 Insulin Detemir (Levemir) 64 units QHS SQ Last administered on 08/31/17 20:13; Start 08/18/17 at 21:00 Fosfomycin Tromethamine (Monurol) 3 gm 1X ONCE PO Last administered on 14:32; Start 08/20/17 at 14:00; Stop 08/20/17 at 14:01; Status DC Buspirone HCl (Buspar) 5 mg BID92 PO Last administered on 08/22/17at 17:08; Start 08/21/17 at 09:00; Stop 08/22/17 at 21:00; Status DC Buspirone HCl (Buspar) 5 mg TID@0900,1300,1700 PO Last administered on at 17:36; Start 08/23/17 at 09:00 Quetiapine Fumarate (SEROquel) 12.5 mg BID92 PO Last administered on 08/28/17at 07:55; Start 08/26/17 at 09:00; Stop 08/28/17 at 11:54; Status DC Metoprolol Tartrate (Lopressor) 50 mg BID PO Last administered on 08/31/17 20: 11; Start 08/28/17 at 21:00 Mirtazapine (Remeron) 7.5 mg QHS PO Last administered on 08/31/17at 20:11; Start 08/29/17 at 21:00 Risperidone (RisperDAL) 0.125 mg QHS PO Last administered on 08/31/17at 20:11; Start 08/29/17 at 21:00 Active Scripts Active Reported Novolog Flexpen (Insulin Aspart) 100 Unit/1 Ml Insuln.pen 0-10 Unit SQ TIDAC Sliding Scale: Accucheck: 150-200 = 2 units 201-250 = 4 units 251-300 = 6 units 301-400 = 8 units 401-500 = 10 units Call PCP if > than 500 or < 70 Basaglar Kwikpen U-100 (Insulin Glargine,Hum.rec.anlog) 100 Unit/1 Ml Insuln.pen 64 Unit SQ QHS Analpram Hc 2.5% Cream (Hydrocortisone/Pramoxine) 30 Gm Cream.appl 1 Yessica RC PRN BID PRN Vitamin D3 (Cholecalciferol (Vitamin D3)) 1,000 Unit Tablet 2,000 Unit PO DAILY Miralax (Polyethylene Glycol 3350) 119 Gm Powder 17 Gm PO DAILY Metoprolol Tartrate 25 Mg Tablet 25 Mg PO BID Namenda (Memantine Hcl) 10 Mg Tablet 10 Mg PO BID Levothyroxine Sodium 125 Mcg Tablet 125 Mcg PO DAILY06 Cymbalta (Duloxetine Hcl) 60 Mg Capsule.dr 60 Mg PO DAILY Aricept (Donepezil Hcl) 10 Mg Tablet 10 Mg PO BID Colace (Docusate Sodium) 100 Mg Capsule 100 Mg PO DAILY Plavix (Clopidogrel Bisulfate) 75 Mg Tablet 75 Mg PO DAILY Centrum Silver Tablet (Multivits-Min/Fa/Lycopene/Lut) 1 Each Tablet 1 Tab PO DAILY Calcium 600 + Vit D 400 Softgl (Calcium Carbonate/Vitamin D3) 1 Each Capsule 1 Cap PO BIDWMEALS Aspir-Low (Aspirin) 81 Mg Tablet. 81 Mg PO DAILY Norvasc (Amlodipine Besylate) 10 Mg Tablet 10 Mg PO DAILY I have reviewed the current psychotropics carefully including drug interactions. Risk benefit ratio favors no change other than as noted in my dictated progress note. 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
--- NOTE | 2017-09-01 00:14 | PN ---
DATE: 08/30/2017 PSYCHIATRIC PROGRESS NOTE This is a late entry for 08/30/2017, covers elements not covered in my initial note of 08/30/2017. SUBJECTIVE: I met with the patient the evening of 08/30/2017 and staffed at a treatment team meeting with the entire team the morning of 08/30/2017 and the patient's daughter, Rosanne attended the conference. I had a lengthy discussion about the patient's history and hallucinations prior to admission. The patient has been started on Risperdal for this. She is delusional, believes she is waiting for a train, sat herself on the floor on one occasion per nursing report. REVIEW OF SYSTEMS: No CV, , pulmonary, eye system symptoms on review. Reliability poor. MENTAL STATUS EXAM: Oriented to herself. Insight, judgment, recent and remote memory, attention, concentration, fund of knowledge poor, consistent with her diagnosis. IMPRESSION: Major neurocognitive disorder, Alzheimer, vascular with delusion, depression. PLAN: Continue psychotropics mentioned in my initial note. Risperdal is 0.125 mg at bedtime, may increase gradually. MAN Koko MARIE MD DR: FENG/[place] JOB#: [id number] / [id number]
[2017-09-01] MEDS ORDERED: MAGN2400 PO (03:18)
[2017-09-01] MEDS ORDERED: MAG355OR17 PO (03:18)
[2017-09-01] MEDS ORDERED: MIRT7.5T8 PO (03:19)
[2017-09-01] MEDS ORDERED: BUSP5TAB PO (03:20)
[2017-09-01] MEDS ORDERED: RISP0.2519 PO (03:22)
[2017-09-01] MEDS: LEVOTHYROXINE 125 MCG TABLET PO SCH (06:11)
[2017-09-01 06:34] VITALS: BP 172/74
[2017-09-01] MEDS: POLYETHYLENE GLYCOL 3350 17 GM PACKET. PO SCH (07:29)
[2017-09-01] MEDS: MULTIVITAMIN with MINERAL TABLET. PO SCH ×2 (07:29→09:00)
[2017-09-01] MEDS: DONEPEZIL HCL 10 MG TABLET PO SCH ×2 (07:30→20:09)
[2017-09-01] MEDS: CHOLECALCIFEROL (VITAMIN D3) 1,000 UNIT TABLET PO SCH (07:30)
[2017-09-01] MEDS: amLODIPine BESYLATE 10 MG TABLET PO SCH (07:30)
[2017-09-01] MEDS: busPIRone 5 MG TABLET. PO SCH ×4 (07:30→18:24)
[2017-09-01] MEDS: DOCUSATE SODIUM 100 MG CAPSULE PO SCH (07:30)
[2017-09-01] MEDS: CLOPIDOGREL BISULFATE 75 MG TABLET PO SCH (07:30)
[2017-09-01] MEDS: ASPIRIN ENTERIC COATED 81 MG TABLET.DR. PO SCH ×2 (07:30→09:00)
[2017-09-01] MEDS: DULoxetine HCL 60 MG CAPSULE.DR PO SCH (07:31)
[2017-09-01] MEDS: METOPROLOL TART IMMED RELEASE 50 MG TABLET PO SCH ×2 (07:31→20:11)
[2017-09-01] MEDS: CALCIUM CARB/VIT D3 500/200 TABLET PO SCH ×2 (07:31→18:25)
[2017-09-01] MEDS: MEMANTINE 10 MG TABLET. PO SCH ×2 (07:31→20:10)
[2017-09-01] MEDS: INSULIN ASPART 300 UNITS/3 ML INSULN.PEN SQ SCH ×3 (07:55→18:20)
[2017-09-01 08:48] LABS: BASO # 0.1 x10^3/uL (0.0-0.2); BASO % 1 % (0-3); EOS # 0.1 x10^3/uL (0.0-0.7); EOS % 1 % (0-3); HEMATOCRIT 35.3 % (36.0-47.0); HEMOGLOBIN 12.1 g/dL (12.0-15.5); LYMPH # 1.4 x10^3/uL (1.0-4.8); LYMPH % 19 % (24-48); MEAN CORPUSCULAR HEMOGLOBIN 31 pg (25-35); MEAN CORPUSCULAR HGB CONC 34 g/dL (31-37); MEAN CORPUSCULAR VOLUME 90 fL (79-100); MONO # 0.7 x10^3/uL (0.0-1.1); MONO % 9 % (0-9); NEUT # 5.4 x10^3uL (1.8-7.7); NEUT % 71 % (31-73); PLATELET COUNT 171 x10^3/uL (140-400); RED BLOOD COUNT 3.91 x10^6/uL (3.50-5.40); RED CELL DISTRIBUTION WIDTH 14.2 % (11.5-14.5); WHITE BLOOD COUNT 7.6 x10^3/uL (4.0-11.0)
[2017-09-01 08:59] LABS: ALBUMIN 3.2 g/dL (3.4-5.0); ALBUMIN/GLOBULIN RATIO 0.8 (1.0-1.7); CALCIUM 9.3 mg/dL (8.5-10.1); CREATININE 1.2 mg/dL (0.6-1.0); GFR 42.5; MAGNESIUM 2.3 mg/dL (1.8-2.4); POTASSIUM 3.7 mmol/L (3.5-5.1); TOTAL BILIRUBIN 0.3 mg/dL (0.2-1.0)
[2017-09-01 16:40] VITALS: BP 165/77
[2017-09-01] MEDS: MIRTAZAPINE 7.5 MG TABLET. PO SCH (20:10)
[2017-09-01] MEDS: risperiDONE 0.25 MG TABLET. PO SCH (20:10)
[2017-09-01] MEDS: INSULIN DETEMIR 300 UNITS/3 ML INSULN.PEN. SQ SCH (20:12)
--- NOTE | 2017-09-01 21:07 | PDOC ---
Exam Note: Basil Note: Please also refer to the separate dictated note~for this date of service dictated separately.~Patient seen individually. Discussed the patient with Nursing staff reviewed the chart.~Reviewed interim history and current functioning. Reviewed vital signs,~Labs/ Radiology~and current medications noted below. Continue current treatment with the changes noted in the dictated addendum note Assessment: Vital Signs: Vital Signs Date Time Temp Pulse Resp B/P (MAP) Pulse Ox O2 Delivery O2 Flow Rate FiO2 09/01/17 20:11 69 165/77 09/01/17 16:40 97.8 18 94 Room Air I&O Intake and Output 09/01/17 07:00 Intake Total 960 ml Balance 960 ml Intake Oral 960 ml # Bowel Movements 2 Labs: Laboratory Tests Test 09/01/17 07:17 09/01/17 07:47 09/01/17 11:50 09/01/17 16:59 Glucose (Fingerstick) 187 mg/dL (70-99) H 232 mg/dL (70-99) H 171 mg/dL (70-99) H White Blood Count 7.6 x10^3/uL (4.0-11.0) Red Blood Count 3.91 x10^6/uL (3.50-5.40) Hemoglobin 12.1 g/dL (12.0-15.5) Hematocrit 35.3 % (36.0-47.0) L Mean Corpuscular Volume 90 fL (79-100) Mean Corpuscular Hemoglobin 31 pg (25-35) Mean Corpuscular Hemoglobin Concent 34 g/dL (31-37) Red Cell Distribution Width 14.2 % (11.5-14.5) Platelet Count 171 x10^3/uL (140-400) Neutrophils (%) (Auto) 71 % (31-73) Lymphocytes (%) (Auto) 19 % (24-48) L Monocytes (%) (Auto) 9 % (0-9) Eosinophils (%) (Auto) 1 % (0-3) Basophils (%) (Auto) 1 % (0-3) Neutrophils # (Auto) 5.4 x10^3uL (1.8-7.7) Lymphocytes # (Auto) 1.4 x10^3/uL (1.0-4.8) Monocytes # (Auto) 0.7 x10^3/uL (0.0-1.1) Eosinophils # (Auto) 0.1 x10^3/uL (0.0-0.7) Basophils # (Auto) 0.1 x10^3/uL (0.0-0.2) Sodium Level 143 mmol/L (136-145) Potassium Level 3.7 mmol/L (3.5-5.1) Chloride Level 105 mmol/L (98-107) Carbon Dioxide Level 28 mmol/L (21-32) Anion Gap 10 (6-14) Blood Urea Nitrogen 34 mg/dL (7-20) H Creatinine 1.2 mg/dL (0.6-1.0) H Estimated GFR (Cockcroft-Gault) 42.5 BUN/Creatinine Ratio 28 (6-20) H Glucose Level 200 mg/dL (70-99) H Calcium Level 9.3 mg/dL (8.5-10.1) Magnesium Level 2.3 mg/dL (1.8-2.4) Total Bilirubin 0.3 mg/dL (0.2-1.0) Aspartate Amino Transferase (AST) 13 U/L (15-37) L Alanine Aminotransferase (ALT) 21 U/L (14-59) Alkaline Phosphatase 78 U/L (46-116) Total Protein 7.0 g/dL (6.4-8.2) Albumin 3.2 g/dL (3.4-5.0) L Albumin/Globulin Ratio 0.8 (1.0-1.7) L Test 09/01/17 19:30 Glucose (Fingerstick) 296 mg/dL (70-99) H Current Medications: Meds: Current Medications Al Hydroxide/Mg Hydroxide (Mylanta Plus Xs) 15 ml PRN AFTMEALHC PRN PO DYSPEPSIA; Start 08/18/17 at 03:45 Magnesium Hydroxide (Milk Of Magnesia) 2,400 mg PRN QHS PRN PO CONSTIPATION; Start 08/18/17 at 03:45 Donepezil HCl (Aricept) 10 mg BID PO Last administered on 09/01/17at 20:09; Start 08/18/17 at 09:00 Duloxetine HCl (Cymbalta) 60 mg DAILY PO Last administered on 09/01/17at 07:31; Start 08/18/17 at 09:00 Memantine (Namenda) 10 mg BID PO Last administered on 09/01/17 20:10; Start at 09:00 Amlodipine Besylate (Norvasc) 10 mg DAILY PO Last administered on 09/01/17 07: 30; Start 08/18/17 at 09:00 Aspirin (Aspirin Enteric Coated) 81 mg DAILY PO Last administered on 08/31/17 08:36; Start 08/18/17 at 09:00 Vitamin D (Vitamin D3) 2,000 unit DAILY PO Last administered on 09/01/17 07:30 ; Start 08/18/17 at 09:00 Clopidogrel Bisulfate (Plavix) 75 mg DAILY PO Last administered on 09/01/17 07: 30; Start 08/18/17 at 09:00 Docusate Sodium (Colace) 100 mg DAILY PO Last administered on 09/01/17 07:30; Start 08/18/17 at 09:00 Levothyroxine Sodium (Synthroid) 125 mcg DAILY06 PO Last administered on 06:11; Start 08/18/17 at 06:00 Metoprolol Tartrate (Lopressor) 25 mg BID PO Last administered on 08/28/17 07: 55; Start 08/18/17 at 09:00; Stop 08/28/17 at 18:18; Status DC Polyethylene Glycol (miraLAX) 17 gm DAILY PO Last administered on 09/01/17 07: 29; Start 08/18/17 at 09:00 Calcium/Vitamin D (Oscal D 500mg/ 200uts) 1 tab BIDWMEALS PO Last administered on 09/01/17 18:25; Start 08/18/17 at 08:00 Hydrocortisone (Proctosol-Hc) 1 yessica PRN BID PRN RC HEMORRHOID PAIN; Start 08/18 at 04:30 Multivitamins/ Calcium (Thera-M Plus) 1 tab DAILY PO Last administered on 08:36; Start 08/18/17 at 09:00 Insulin Aspart (NovoLOG) 0-5 UNITS TIDAC SQ Last administered on 09/01/17 18:20 ; Start 08/18/17 at 07:30 Dextrose 12.5 gm PRN Q15MIN PRN IV SEE COMMENTS; Start 08/18/17 at 03:45 Insulin Detemir (Levemir) 64 units QHS SQ Last administered on 09/01/17at 20:12; Start 08/18/17 at 21:00 Fosfomycin Tromethamine (Monurol) 3 gm 1X ONCE PO Last administered on at 14:32; Start 08/20/17 at 14:00; Stop 08/20/17 at 14:01; Status DC Buspirone HCl (Buspar) 5 mg BID92 PO Last administered on 08/22/17at 17:08; Start 08/21/17 at 09:00; Stop 08/22/17 at 21:00; Status DC Buspirone HCl (Buspar) 5 mg TID@0900,1300,1700 PO Last administered on at 18:24; Start 08/23/17 at 09:00 Quetiapine Fumarate (SEROquel) 12.5 mg BID92 PO Last administered on 08/28/17at 07:55; Start 08/26/17 at 09:00; Stop 08/28/17 at 11:54; Status DC Metoprolol Tartrate (Lopressor) 50 mg BID PO Last administered on 09/01/17 20: 11; Start 08/28/17 at 21:00 Mirtazapine (Remeron) 7.5 mg QHS PO Last administered on 09/01/17at 20:10; Start 08/29/17 at 21:00 Risperidone (RisperDAL) 0.125 mg QHS PO Last administered on 09/01/17at 20:10; Start 08/29/17 at 21:00 Olanzapine (ZyPREXA ZYDIS) 2.5 mg PRN Q2HR PRN PO PSYCHOSIS; Start 09/01/17 at 11:45 Active Scripts Active Reported Risperdal (Risperidone) 0.25 Mg Tablet 0.125 Mg PO QHS Buspirone Hcl 5 Mg Tablet 5 Mg PO TID@03/14/1700 Mirtazapine 7.5 Mg Tablet 7.5 Mg PO QHS Milk Of Magnesia (Magnesium Hydroxide) 2,400 Mg/10 Ml Oral.susp 2,400 Mg PO PRN QHS PRN Advanced Antacid Liquid (Mag Hydrox/Al Hydrox/Simeth) 355 Ml Oral.susp 15 Ml PO PRN AFTMEALHC PRN Novolog Flexpen (Insulin Aspart) 100 Unit/1 Ml Insuln.pen 0-10 Unit SQ TIDAC Sliding Scale: Accucheck: 150-200 = 2 units 201-250 = 4 units 251-300 = 6 units 301-400 = 8 units 401-500 = 10 units Call PCP if > than 500 or < 70 Basaglar Kwikpen U-100 (Insulin Glargine,Hum.rec.anlog) 100 Unit/1 Ml Insuln.pen 64 Unit SQ QHS Analpram Hc 2.5% Cream (Hydrocortisone/Pramoxine) 30 Gm Cream.appl 1 Yessica RC PRN BID PRN Vitamin D3 (Cholecalciferol (Vitamin D3)) 1,000 Unit Tablet 2,000 Unit PO DAILY Miralax (Polyethylene Glycol 3350) 119 Gm Powder 17 Gm PO DAILY Metoprolol Tartrate 25 Mg Tablet 25 Mg PO BID Namenda (Memantine Hcl) 10 Mg Tablet 10 Mg PO BID Levothyroxine Sodium 125 Mcg Tablet 125 Mcg PO DAILY06 Cymbalta (Duloxetine Hcl) 60 Mg Capsule. 60 Mg PO DAILY Aricept (Donepezil Hcl) 10 Mg Tablet 10 Mg PO BID Colace (Docusate Sodium) 100 Mg Capsule 100 Mg PO DAILY Plavix (Clopidogrel Bisulfate) 75 Mg Tablet 75 Mg PO DAILY Centrum Silver Tablet (Multivits-Min/Fa/Lycopene/Lut) 1 Each Tablet 1 Tab PO DAILY Calcium 600 + Vit D 400 Softgl (Calcium Carbonate/Vitamin D3) 1 Each Capsule 1 Cap PO BIDWMEALS Aspir-Low (Aspirin) 81 Mg Tablet. 81 Mg PO DAILY Norvasc (Amlodipine Besylate) 10 Mg Tablet 10 Mg PO DAILY I have reviewed the current psychotropics carefully including drug interactions. Risk benefit ratio favors no change other than as noted in my dictated progress note. 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
[2017-09-02 06:25] VITALS: BP 157/75
[2017-09-02] MEDS: LEVOTHYROXINE 125 MCG TABLET PO SCH (06:28)
[2017-09-02] MEDS: CLOPIDOGREL BISULFATE 75 MG TABLET PO SCH (07:29)
[2017-09-02] MEDS: CALCIUM CARB/VIT D3 500/200 TABLET PO SCH ×2 (07:29→18:15)
[2017-09-02] MEDS: MULTIVITAMIN with MINERAL TABLET. PO SCH (07:29)
[2017-09-02] MEDS: busPIRone 5 MG TABLET. PO SCH ×3 (07:29→18:15)
[2017-09-02] MEDS: DOCUSATE SODIUM 100 MG CAPSULE PO SCH (07:29)
[2017-09-02] MEDS: DONEPEZIL HCL 10 MG TABLET PO SCH ×2 (07:29→20:09)
[2017-09-02] MEDS: amLODIPine BESYLATE 10 MG TABLET PO SCH (07:29)
[2017-09-02] MEDS: DULoxetine HCL 60 MG CAPSULE.DR PO SCH (07:29)
[2017-09-02] MEDS: POLYETHYLENE GLYCOL 3350 17 GM PACKET. PO SCH (07:29)
[2017-09-02] MEDS: MEMANTINE 10 MG TABLET. PO SCH ×2 (07:29→20:09)
[2017-09-02] MEDS: ASPIRIN ENTERIC COATED 81 MG TABLET.DR. PO SCH (07:30)
[2017-09-02] MEDS: INSULIN ASPART 300 UNITS/3 ML INSULN.PEN SQ SCH ×3 (07:30→16:30)
[2017-09-02] MEDS: CHOLECALCIFEROL (VITAMIN D3) 1,000 UNIT TABLET PO SCH (07:30)
[2017-09-02] MEDS: METOPROLOL TART IMMED RELEASE 50 MG TABLET PO SCH ×2 (07:30→20:09)
[2017-09-02] MEDS ORDERED: OLAN5TAB5 PO (15:17)
[2017-09-02] MEDS ORDERED: METO50TA6 PO (15:23)
[2017-09-02 16:14] VITALS: BP 145/61
--- NOTE | 2017-09-02 18:49 | PN ---
DATE: 08/31/2017 This late entry 08/31/2017 covers elements not covered in my initial note 08/31/2017. SUBJECTIVE: I met with the patient evening of 08/31/2017. The patient remains confused, more talkative, slept well, compliant with medications, delusional, believes [place] is at an airport reaching out and grabbing for things that are not there. REVIEW OF SYSTEMS: No CV, , pulmonary, eye, ENT system symptoms on review. MENTAL STATUS EXAM: Oriented to herself. Insight, judgment, recent and remote memory, attention, concentration, fund of knowledge poor, consistent with her diagnosis mentioned in my initial note. PLAN: Continue psychotropics. May need to increase Risperdal in due course. MAN Koko MARIE MD DR: FENG/[place] JOB#: [id number] / [id number]
--- NOTE | 2017-09-02 18:51 | PN ---
DATE: 09/01/2017 This late entry 09/01/2017 covers elements not covered in my initial note 09/01/2017. SUBJECTIVE: I met with the patient evening of 09/01/2017. The patient remains confused, calm, compliant with medications, otherwise pleasant, somewhat withdrawn, more out of the room on 09/01/2017. REVIEW OF SYSTEMS: No CV, , pulmonary, eye, ENT system symptoms on review. Reliability poor. MENTAL STATUS EXAM: Oriented to herself. Insight, judgment, recent and remote memory, attention, concentration, fund of knowledge poor, consistent with her diagnosis mentioned in my initial note. PLAN: Continue psychotropics mentioned in my initial note. MAN Koko MARIE MD DR: FENG/[place] JOB#: [id number] / [id number]
[2017-09-02] MEDS: MIRTAZAPINE 7.5 MG TABLET. PO SCH (20:09)
[2017-09-02] MEDS: risperiDONE 0.25 MG TABLET. PO SCH (20:09)
--- NOTE | 2017-09-02 20:11 | PDOC ---
Exam Note: Basil Note: Please also refer to the separate dictated note~for this date of service dictated separately.~Patient seen individually. Discussed the patient with Nursing staff reviewed the chart.~Reviewed interim history and current functioning. Reviewed vital signs,~Labs/ Radiology~and current medications noted below. Continue current treatment with the changes noted in the dictated addendum note Assessment: Vital Signs: Vital Signs Date Time Temp Pulse Resp B/P (MAP) Pulse Ox O2 Delivery O2 Flow Rate FiO2 09/02/17 16:14 97.5 66 20 145/61 (89) 95 09/01/17 16:40 Room Air I&O Intake and Output 09/02/17 07:00 Intake Total 720 ml Balance 720 ml Intake Oral 720 ml # Bowel Movements 1 Labs: Laboratory Tests Test 09/02/17 06:14 09/02/17 06:37 09/02/17 07:51 09/02/17 11:39 Glucose (Fingerstick) 57 mg/dL (70-99) L 81 mg/dL (70-99) 195 mg/dL (70-99) H 232 mg/dL (70-99) H Test 09/02/17 17:01 09/02/17 19:11 Glucose (Fingerstick) 226 mg/dL (70-99) H 223 mg/dL (70-99) H Current Medications: Meds: Current Medications Al Hydroxide/Mg Hydroxide (Mylanta Plus Xs) 15 ml PRN AFTMEALHC PRN PO DYSPEPSIA; Start 08/18/17 at 03:45 Magnesium Hydroxide (Milk Of Magnesia) 2,400 mg PRN QHS PRN PO CONSTIPATION; Start 08/18/17 at 03:45 Donepezil HCl (Aricept) 10 mg BID PO Last administered on 09/02/17 07:29; Start 08/18/17 at 09:00 Duloxetine HCl (Cymbalta) 60 mg DAILY PO Last administered on 09/02/17 07:29; Start 08/18/17 at 09:00 Memantine (Namenda) 10 mg BID PO Last administered on 09/02/17 07:29; Start at 09:00 Amlodipine Besylate (Norvasc) 10 mg DAILY PO Last administered on 09/02/17 07: 29; Start 08/18/17 at 09:00 Aspirin (Aspirin Enteric Coated) 81 mg DAILY PO Last administered on 09/02/17 07:30; Start 08/18/17 at 09:00 Vitamin D (Vitamin D3) 2,000 unit DAILY PO Last administered on 09/02/17 07:30 ; Start 08/18/17 at 09:00 Clopidogrel Bisulfate (Plavix) 75 mg DAILY PO Last administered on 09/02/17 07: 29; Start 08/18/17 at 09:00 Docusate Sodium (Colace) 100 mg DAILY PO Last administered on 09/02/17 07:29; Start 08/18/17 at 09:00 Levothyroxine Sodium (Synthroid) 125 mcg DAILY06 PO Last administered on 06:28; Start 08/18/17 at 06:00 Metoprolol Tartrate (Lopressor) 25 mg BID PO Last administered on 08/28/17 07: 55; Start 08/18/17 at 09:00; Stop 08/28/17 at 18:18; Status DC Polyethylene Glycol (miraLAX) 17 gm DAILY PO Last administered on 09/02/17 07: 29; Start 08/18/17 at 09:00 Calcium/Vitamin D (Oscal D 500mg/ 200uts) 1 tab BIDWMEALS PO Last administered on 09/02/17 18:15; Start 08/18/17 at 08:00 Hydrocortisone (Proctosol-Hc) 1 yessica PRN BID PRN RC HEMORRHOID PAIN; Start 08/18 at 04:30 Multivitamins/ Calcium (Thera-M Plus) 1 tab DAILY PO Last administered on 07:29; Start 08/18/17 at 09:00 Insulin Aspart (NovoLOG) 0-5 UNITS TIDAC SQ Last administered on 09/02/17 16:30 ; Start 08/18/17 at 07:30 Dextrose 12.5 gm PRN Q15MIN PRN IV SEE COMMENTS; Start 08/18/17 at 03:45 Insulin Detemir (Levemir) 64 units QHS SQ Last administered on 09/01/17 20:12; Start 08/18/17 at 21:00 Fosfomycin Tromethamine (Monurol) 3 gm 1X ONCE PO Last administered on 2/19/ 18at 14:32; Start 08/20/17 at 14:00; Stop 08/20/17 at 14:01; Status DC Buspirone HCl (Buspar) 5 mg BID92 PO Last administered on 08/22/17at 17:08; Start 08/21/17 at 09:00; Stop 08/22/17 at 21:00; Status DC Buspirone HCl (Buspar) 5 mg TID@0900,1300,1700 PO Last administered on at 18:15; Start 08/23/17 at 09:00 Quetiapine Fumarate (SEROquel) 12.5 mg BID92 PO Last administered on 08/28/17at 07:55; Start 08/26/17 at 09:00; Stop 08/28/17 at 11:54; Status DC Metoprolol Tartrate (Lopressor) 50 mg BID PO Last administered on 09/02/17at 07: 30; Start 08/28/17 at 21:00 Mirtazapine (Remeron) 7.5 mg QHS PO Last administered on 09/01/17at 20:10; Start 08/29/17 at 21:00 Risperidone (RisperDAL) 0.125 mg QHS PO Last administered on 09/01/17at 20:10; Start 08/29/17 at 21:00 Olanzapine (ZyPREXA ZYDIS) 2.5 mg PRN Q2HR PRN PO PSYCHOSIS; Start 09/01/17 at 11:45 Active Scripts Active Reported Zyprexa Zydis (Olanzapine) 5 Mg Tab.rapdis 2.5 Mg PO PRN Q2HR PRN Risperdal (Risperidone) 0.25 Mg Tablet 0.125 Mg PO QHS Buspirone Hcl 5 Mg Tablet 5 Mg PO TID@03/14/1700 Mirtazapine 7.5 Mg Tablet 7.5 Mg PO QHS Milk Of Magnesia (Magnesium Hydroxide) 2,400 Mg/10 Ml Oral.susp 2,400 Mg PO PRN QHS PRN Advanced Antacid Liquid (Mag Hydrox/Al Hydrox/Simeth) 355 Ml Oral.susp 15 Ml PO PRN AFTMEALHC PRN Novolog Flexpen (Insulin Aspart) 100 Unit/1 Ml Insuln.pen 0-10 Unit SQ TIDAC Sliding Scale: Accucheck: 150-200 = 2 units 201-250 = 4 units 251-300 = 6 units 301-400 = 8 units 401-500 = 10 units Call PCP if > than 500 or < 70 Mery Santoropen U-100 (Insulin Glargine,Hum.rec.anlog) 100 Unit/1 Ml Insuln.pen 64 Unit SQ QHS Analpram Hc 2.5% Cream (Hydrocortisone/Pramoxine) 30 Gm Cream.appl 1 Yessica RC PRN BID PRN Vitamin D3 (Cholecalciferol (Vitamin D3)) 1,000 Unit Tablet 2,000 Unit PO DAILY Miralax (Polyethylene Glycol 3350) 119 Gm Powder 17 Gm PO DAILY Metoprolol Tartrate 25 Mg Tablet 25 Mg PO BID Namenda (Memantine Hcl) 10 Mg Tablet 10 Mg PO BID Levothyroxine Sodium 125 Mcg Tablet 125 Mcg PO DAILY06 Cymbalta (Duloxetine Hcl) 60 Mg Capsule. 60 Mg PO DAILY Aricept (Donepezil Hcl) 10 Mg Tablet 10 Mg PO BID Colace (Docusate Sodium) 100 Mg Capsule 100 Mg PO DAILY Plavix (Clopidogrel Bisulfate) 75 Mg Tablet 75 Mg PO DAILY Centrum Silver Tablet (Multivits-Min/Fa/Lycopene/Lut) 1 Each Tablet 1 Tab PO DAILY Calcium 600 + Vit D 400 Softgl (Calcium Carbonate/Vitamin D3) 1 Each Capsule 1 Cap PO BIDWMEALS Aspir-Low (Aspirin) 81 Mg Tablet. 81 Mg PO DAILY Norvasc (Amlodipine Besylate) 10 Mg Tablet 10 Mg PO DAILY I have reviewed the current psychotropics carefully including drug interactions. Risk benefit ratio favors no change other than as noted in my dictated progress note. 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
[2017-09-02] MEDS: INSULIN DETEMIR 300 UNITS/3 ML INSULN.PEN. SQ SCH (20:46)
[2017-09-03] MEDS: LEVOTHYROXINE 125 MCG TABLET PO SCH (05:46)
[2017-09-03 06:25] VITALS: BP 152/60
[2017-09-03] MEDS: INSULIN ASPART 300 UNITS/3 ML INSULN.PEN SQ SCH ×2 (07:30→11:30)
[2017-09-03] MEDS: CHOLECALCIFEROL (VITAMIN D3) 1,000 UNIT TABLET PO SCH (08:56)
[2017-09-03] MEDS: CLOPIDOGREL BISULFATE 75 MG TABLET PO SCH (08:56)
[2017-09-03] MEDS: DOCUSATE SODIUM 100 MG CAPSULE PO SCH (08:56)
[2017-09-03] MEDS: amLODIPine BESYLATE 10 MG TABLET PO SCH (08:56)
[2017-09-03] MEDS: busPIRone 5 MG TABLET. PO SCH (08:56)
[2017-09-03 08:57] VITALS: BP 152/60
[2017-09-03] MEDS: ASPIRIN ENTERIC COATED 81 MG TABLET.DR. PO SCH (08:57)
[2017-09-03] MEDS: MEMANTINE 10 MG TABLET. PO SCH (08:57)
[2017-09-03] MEDS: DULoxetine HCL 60 MG CAPSULE.DR PO SCH (08:57)
[2017-09-03] MEDS: MULTIVITAMIN with MINERAL TABLET. PO SCH (08:57)
[2017-09-03] MEDS: METOPROLOL TART IMMED RELEASE 50 MG TABLET PO SCH (08:57)
[2017-09-03] MEDS: DONEPEZIL HCL 10 MG TABLET PO SCH (08:57)
[2017-09-03] MEDS: CALCIUM CARB/VIT D3 500/200 TABLET PO SCH (08:57)
[2017-09-03] MEDS: POLYETHYLENE GLYCOL 3350 17 GM PACKET. PO SCH (08:58)
--- NOTE | 2017-09-03 18:25 | PDOC ---
Exam Note: Basil Note: Please also refer to the separate dictated note~for this date of service dictated separately.~Patient seen individually. Discussed the patient with Nursing staff reviewed the chart.~Reviewed interim history and current functioning. Reviewed vital signs,~Labs/ Radiology~and current medications noted below. Continue current treatment with the changes noted in the dictated addendum note Assessment: Vital Signs: Vital Signs Date Time Temp Pulse Resp B/P (MAP) Pulse Ox O2 Delivery O2 Flow Rate FiO2 09/03/17 08:57 62 152/60 09/03/17 06:25 98.3 18 98 09/01/17 16:40 Room Air I&O Intake and Output 09/03/17 07:00 Intake Total 1080 ml Balance 1080 ml Intake Oral 1080 ml # Voids 1 # Bowel Movements 1 Labs: Laboratory Tests Test 09/02/17 19:11 09/03/17 07:38 09/03/17 11:31 Glucose (Fingerstick) 223 mg/dL (70-99) H 86 mg/dL (70-99) 155 mg/dL (70-99) H Current Medications: Meds: Current Medications Al Hydroxide/Mg Hydroxide (Mylanta Plus Xs) 15 ml PRN AFTMEALHC PRN PO DYSPEPSIA; Start 08/18/17 at 03:45; Stop 09/03/17 at 12:38; Status DC Magnesium Hydroxide (Milk Of Magnesia) 2,400 mg PRN QHS PRN PO CONSTIPATION; Start 08/18/17 at 03:45; Stop 09/03/17 at 12:38; Status DC Donepezil HCl (Aricept) 10 mg BID PO Last administered on 09/03/17 08:57; Start 08/18/17 at 09:00; Stop 09/03/17 at 12:38; Status DC Duloxetine HCl (Cymbalta) 60 mg DAILY PO Last administered on 09/03/17 08:57; Start 08/18/17 at 09:00; Stop 09/03/17 at 12:38; Status DC Memantine (Namenda) 10 mg BID PO Last administered on 09/03/17 08:57; Start at 09:00; Stop 09/03/17 at 12:38; Status DC Amlodipine Besylate (Norvasc) 10 mg DAILY PO Last administered on 09/03/17 08: 56; Start 08/18/17 at 09:00; Stop 09/03/17 at 12:38; Status DC Aspirin (Aspirin Enteric Coated) 81 mg DAILY PO Last administered on 09/03/17 08:57; Start 08/18/17 at 09:00; Stop 09/03/17 at 12:38; Status DC Vitamin D (Vitamin D3) 2,000 unit DAILY PO Last administered on 09/03/17 08:56 ; Start 08/18/17 at 09:00; Stop 09/03/17 at 12:38; Status DC Clopidogrel Bisulfate (Plavix) 75 mg DAILY PO Last administered on 09/03/17 08: 56; Start 08/18/17 at 09:00; Stop 09/03/17 at 12:38; Status DC Docusate Sodium (Colace) 100 mg DAILY PO Last administered on 09/03/17 08:56; Start 08/18/17 at 09:00; Stop 09/03/17 at 12:38; Status DC Levothyroxine Sodium (Synthroid) 125 mcg DAILY06 PO Last administered on 05:46; Start 08/18/17 at 06:00; Stop 09/03/17 at 12:38; Status DC Metoprolol Tartrate (Lopressor) 25 mg BID PO Last administered on 08/28/17 07: 55; Start 08/18/17 at 09:00; Stop 08/28/17 at 18:18; Status DC Polyethylene Glycol (miraLAX) 17 gm DAILY PO Last administered on 09/03/17 08: 58; Start 08/18/17 at 09:00; Stop 09/03/17 at 12:38; Status DC Calcium/Vitamin D (Oscal D 500mg/ 200uts) 1 tab BIDWMEALS PO Last administered on 09/03/17 08:57; Start 08/18/17 at 08:00; Stop 09/03/17 at 12:38; Status DC Hydrocortisone (Proctosol-Hc) 1 yessica PRN BID PRN RC HEMORRHOID PAIN; Start 08/18 at 04:30; Stop 09/03/17 at 12:38; Status DC Multivitamins/ Calcium (Thera-M Plus) 1 tab DAILY PO Last administered on 08:57; Start 08/18/17 at 09:00; Stop 09/03/17 at 12:38; Status DC Insulin Aspart (NovoLOG) 0-5 UNITS TIDAC SQ Last administered on 09/03/17 11:30 ; Start 08/18/17 at 07:30; Stop 09/03/17 at 12:38; Status DC Dextrose 12.5 gm PRN Q15MIN PRN IV SEE COMMENTS; Start 08/18/17 at 03:45; Stop 09/03/17 at 12:38; Status DC Insulin Detemir (Levemir) 64 units QHS SQ Last administered on 09/02/17 20:46; Start 08/18/17 at 21:00; Stop 09/03/17 at 12:38; Status DC Fosfomycin Tromethamine (Monurol) 3 gm 1X ONCE PO Last administered on at 14:32; Start 08/20/17 at 14:00; Stop 08/20/17 at 14:01; Status DC Buspirone HCl (Buspar) 5 mg BID92 PO Last administered on 08/22/17at 17:08; Start 08/21/17 at 09:00; Stop 08/22/17 at 21:00; Status DC Buspirone HCl (Buspar) 5 mg TID@0900,1300,1700 PO Last administered on 08:56; Start 08/23/17 at 09:00; Stop 09/03/17 at 12:38; Status DC Quetiapine Fumarate (SEROquel) 12.5 mg BID92 PO Last administered on 08/28/17at 07:55; Start 08/26/17 at 09:00; Stop 08/28/17 at 11:54; Status DC Metoprolol Tartrate (Lopressor) 50 mg BID PO Last administered on 09/03/17 08: 57; Start 08/28/17 at 21:00; Stop 09/03/17 at 12:38; Status DC Mirtazapine (Remeron) 7.5 mg QHS PO Last administered on 09/02/17 20:09; Start 08/29/17 at 21:00; Stop 09/03/17 at 12:38; Status DC Risperidone (RisperDAL) 0.125 mg QHS PO Last administered on 09/02/17at 20:09; Start 08/29/17 at 21:00; Stop 09/03/17 at 12:38; Status DC Olanzapine (ZyPREXA ZYDIS) 2.5 mg PRN Q2HR PRN PO PSYCHOSIS; Start 09/01/17 at 11:45; Stop 09/03/17 at 12:38; Status DC Active Scripts Active Reported Metoprolol Tartrate 50 Mg Tablet 50 Mg PO BID Zyprexa Zydis (Olanzapine) 5 Mg Tab.rapdis 2.5 Mg PO PRN Q2HR PRN Risperdal (Risperidone) 0.25 Mg Tablet 0.125 Mg PO QHS Buspirone Hcl 5 Mg Tablet 5 Mg PO TID@03/14/1700 Mirtazapine 7.5 Mg Tablet 7.5 Mg PO QHS Milk Of Magnesia (Magnesium Hydroxide) 2,400 Mg/10 Ml Oral.susp 2,400 Mg PO PRN QHS PRN Advanced Antacid Liquid (Mag Hydrox/Al Hydrox/Simeth) 355 Ml Oral.susp 15 Ml PO PRN AFTMEALHC PRN Novolog Flexpen (Insulin Aspart) 100 Unit/1 Ml Insuln.pen 0-5 Unit SQ TIDAC Sliding Scale: Accucheck: 70-150 = 0 units 151-200 = 2 units 201-250 = 3 units 251-300 = 4 units 301-350 = 5 units Call PCP if BS > or = to 351 Basaglar Kwikpen U-100 (Insulin Glargine,Hum.rec.anlog) 100 Unit/1 Ml Insuln.pen 64 Unit SQ QHS Analpram Hc 2.5% Cream (Hydrocortisone/Pramoxine) 30 Gm Cream.appl 1 Yessica RC PRN BID PRN Vitamin D3 (Cholecalciferol (Vitamin D3)) 1,000 Unit Tablet 2,000 Unit PO DAILY Miralax (Polyethylene Glycol 3350) 119 Gm Powder 17 Gm PO DAILY Namenda (Memantine Hcl) 10 Mg Tablet 10 Mg PO BID Levothyroxine Sodium 125 Mcg Tablet 125 Mcg PO DAILY06 Cymbalta (Duloxetine Hcl) 60 Mg Capsule.dr 60 Mg PO DAILY Aricept (Donepezil Hcl) 10 Mg Tablet 10 Mg PO BID Colace (Docusate Sodium) 100 Mg Capsule 100 Mg PO DAILY Plavix (Clopidogrel Bisulfate) 75 Mg Tablet 75 Mg PO DAILY Centrum Silver Tablet (Multivits-Min/Fa/Lycopene/Lut) 1 Each Tablet 1 Tab PO DAILY Calcium 600 + Vit D 400 Softgl (Calcium Carbonate/Vitamin D3) 1 Each Capsule 1 Cap PO BIDWMEALS Aspir-Low (Aspirin) 81 Mg Tablet. 81 Mg PO DAILY Norvasc (Amlodipine Besylate) 10 Mg Tablet 10 Mg PO DAILY I have reviewed the current psychotropics carefully including drug interactions. Risk benefit ratio favors no change other than as noted in my dictated progress note. Diagnosis: Problems: (1) Behavior problem (2) Vascular dementia with behavior disturbance (3) Impulse control disorder (4) Depression (5) Anxiety disorder HITESH MARIE MD Sep 03, 2017 18:25
--- NOTE | 2017-09-04 00:33 | PN ---
DATE: 09/02/2017 PSYCHIATRIC PROGRESS NOTE This late entry 09/02/2017 covers elements not covered in my initial note of 09/02/2017. SUBJECTIVE: Met with the patient in the evening of 09/02/2017. The patient has been somewhat euphoric confused, but redirectable. REVIEW OF SYSTEMS: No CV, , pulmonary, eye, ENT system symptoms on review. Reliability is poor. MENTAL STATUS EXAM: Oriented to herself. Insight, judgment, recent and remote memory, attention, concentration, fund of knowledge is poor, consistent with her diagnoses mentioned in my initial note. PLAN: Continue current psychotropics including Risperdal 0.125 mg p.o. at bedtime. Consider transition to [facility] on 09/03/2017. MAN Koko MARIE MD DR: FENG/j[place]ica JOB#: [id number] / [id number]
--- NOTE | 2017-09-04 14:00 | DS ---
DATE OF DISCHARGE: 09/03/2017 DISCHARGE SUMMARY/PSYCHIATRIC PROGRESS NOTE This is a late entry for 09/03/2017 covers elements not covered in my initial note 09/03/2017. REASON FOR ADMISSION: Please refer to the admission history for details. Briefly, the patient is an 87-year-old female referred to us from the [facility] by her primary care physician on account of increased confusion, worsening agitation, hallucinations and she was seeing children that she was [facility]. She was aggressive towards staff, chasing staff, delusional, attempting to elope from the facility, worsening confusion with sundowning. Most of the behaviors were noted in the evening. She had failed outpatient psychiatric interventions resulting in this referral. SIGNIFICANT FINDINGS AND CLINICAL COURSE: Following admission, the patient was seen daily individually by myself, followed medically per Dr. Carlson/Dr. Cai. She is quite confused, intermittently psychotic, anxious, agitated with marked mood lability, withdrawn to the room. Adjustments were made in her psychotropic. She was started on Seroquel, but the daughter felt she was unable to tolerate Seroquel in the past and this was later changed to Risperdal. She seemed to respond to a combination of Namenda 10 mg b.i.d., Aricept 10 mg a day, Cymbalta 60 mg a day, BuSpar 5 mg 3 times a day, Remeron 7.5 mg at bedtime, Risperdal 0.125 mg at bedtime, Zyprexa p.r.n. prior to discharge on 09/03/2017. REVIEW OF SYSTEMS: No CV, , pulmonary, eye, ENT system symptoms on review. Reliability poor. MENTAL STATUS EXAM: Oriented to herself. Insight, judgment, recent and remote memory, attention, concentration, fund of knowledge poor, consistent with her diagnosis. CONDITION AT DISCHARGE: Improved. FINAL DIAGNOSES: Major neurocognitive disorder, Alzheimer, vascular with delusion, depression, behavioral disturbance; anxiety disorder, unspecified; impulse control disorder, unspecified. Rest unchanged from admission. DISCHARGE MEDICATIONS: Please refer to the EMRAD. DISCHARGE INSTRUCTIONS: [facility]. Time for discharge day management greater than 30 minutes. MAN Koko MARIE MD DR: FENG/j[place] JOB#: [id number] / [id number]
== END 2017-09-03 12:37 | DRG 884 ==
LOC: GEROPSY 03:45
PROVIDERS: ADMIT Psychiatry & Neurology Psychiatry; ATTEND Psychiatry & Neurology Psychiatry
DX: F01.51 Vascular dementia, unspecified severity, with behavioral disturbance (principal); E11.22 Type 2 diabetes mellitus with diabetic chronic kidney disease; G30.9 Alzheimer's disease, unspecified; F02.81 Dementia in other diseases classified elsewhere, unspecified severity, with behavioral disturbance; F05 Delirium due to known physiological condition; N39.0 Urinary tract infection, site not specified; F41.9 Anxiety disorder, unspecified; F22 Delusional disorders; F32.9 Major depressive disorder, single episode, unspecified; F63.9 Impulse disorder, unspecified; I12.9 Hypertensive chronic kidney disease with stage 1 through stage 4 chronic kidney disease, or unspecified chronic kidney disease; I25.10 Atherosclerotic heart disease of native coronary artery without angina pectoris; E03.9 Hypothyroidism, unspecified; N18.9 Chronic kidney disease, unspecified; Q82.5 Congenital non-neoplastic nevus; Z79.4 Long term (current) use of insulin; Z82.0 Family history of epilepsy and other diseases of the nervous system; Z82.5 Family history of asthma and other chronic lower respiratory diseases; Z86.73 Personal history of transient ischemic attack (TIA), and cerebral infarction without residual deficits; Z87.440 Personal history of urinary (tract) infections; Z90.710 Acquired absence of both cervix and uterus; Z79.899 Other long term (current) drug therapy; Z88.6 Allergy status to analgesic agent; Z88.1 Allergy status to other antibiotic agents; Z88.8 Allergy status to other drugs, medicaments and biological substances; Z90.49 Acquired absence of other specified parts of digestive tract; Z91.83 Wandering in diseases classified elsewhere
CPT/HCPCS: 36415; 80053; 80061; 81001; 82306; 82607; 82947; 83036; 83540; 83550; 83735; 84436; 84443; 84480; 85025; 86593; 87086; 87186; J1815; 97110; 97116; 97530